=== PATIENT | male | born 1985 | race Caucasian/White ===

== ENCOUNTER 2016-08-15 17:29 | Emergency (ER) | payer OTHER ==
[2016-08-15 17:34] VITALS: BP 123/79; PULSE 82; TEMP 98; BMI 28.3
--- NOTE | 2016-08-15 17:51 | PDOC ---
History of Present Illness - General History Source: Patient Exam Limitations: No Limitations - History of Present Illness Initial Comments: 08/15/16 18:19 The patient is a 31 year old male presenting with his , with no significant past medical history, who presents to the emergency department with chest pain and dizziness onset today. He describes his chest pain as mild, without radiation or modifying factors. He also reports palpitations associated with his chief complaint. He states that for breakfast he usually drinks coffee and then skips lunch. For dinner he usually has a relatively big meal. He notes that he has been supplementing his lack of food intake with an energy powder he obtained at [facility]. He states that today he drank 2 scoop 8 ounce drinks every 2 hours of the powder. He states that he doesnt know whats in the powder other than caffeine. The patient denies shortness of breath and headache. Denies fever, chills, nausea, vomit, diarrhea and constipation. Allergies: None Past surgical history: None reported Social history: Alcohol, heroin and tobacco use (4 daily) <Gualberto Choi - Last Filed: 08/15/16 18:19> <Abe Wiley - Last Filed: 08/15/16 18:54> - General Chief Complaint: Chest Pain Stated Complaint: CHEST PAIN Time Seen by Provider: 08/15/16 17:43 Past History <Gualberto Choi - Last Filed: 08/15/16 18:19> - Past Medical History Anemia: No Asthma: No Cancer: No Cardiac Disorders: No CVA: No COPD: No CHF: No Dementia: No Diabetes: No GI Disorders: No Disorders: No HTN: No Hypercholesterolemia: No Kidney Stones: No Liver Disease: No Suicide Attempt (Hx): No Seizures: No Thyroid Disease: No Other medical history: DENIES - Surgical History Abdominal Surgery: No Appendectomy: No Cardiac Surgery: No Cholecystectomy: No Lung Surgery: No Neurologic Surgery: No Orthopedic Surgery: No - Reproductive History Testicular Surgery: No - Psycho/Social/Smoking Cessation Hx Anxiety: No Suicidal Ideation: No Smoking Status: Yes Smoking History: Current every day smoker Years of Tobacco Use: 5 Have you smoked in the past 12 months: Yes Number of Cigarettes Smoked Daily: 4 Cigars Per Day: 0 Information on smoking cessation initiated: Yes 'Breaking Loose' booklet given: 08/15/16 Hx Alcohol Use: Yes Drug/Substance Use Hx: Yes Substance Use Type: Heroin Hx Substance Use Treatment: Yes <Abe Wiley - Last Filed: 08/15/16 18:54> - Past Medical History Allergies/Adverse Reactions: Allergies Allergy/AdvReac Type Severity Reaction Status Date / Time No Known Allergies Allergy Verified 08/15/16 17:30 Home Medications: Ambulatory Orders NK [No Known Home Medication] 04/18/16 Review of Systems - Review of Systems Able to Perform ROS?: Yes Comments:: 08/15/16 18:19 GENERAL/CONSTITUTIONAL: No fever or chills. No weakness. HEAD, EYES, EARS, NOSE AND THROAT: No change in vision. No ear pain or discharge. No sore throat. CARDIOVASCULAR: +Chest pain, palpitations. No shortness of breath RESPIRATORY: No cough, wheezing, or hemoptysis. GASTROINTESTINAL: No nausea, vomiting, diarrhea or constipation. GENITOURINARY: No dysuria, frequency, or change in urination. MUSCULOSKELETAL: No joint or muscle swelling or pain. No neck or back pain. SKIN: No rash NEUROLOGIC: +Dizziness. No headache, loss of consciousness, or change in strength/sensation. ENDOCRINE: No increased thirst. No abnormal weight change HEMATOLOGIC/LYMPHATIC: No anemia, easy bleeding, or history of blood clots. ALLERGIC/IMMUNOLOGIC: No hives or skin allergy. <Gualberto Choi - Last Filed: 08/15/16 18:19> *Physical Exam - Vital Signs Last Vital Signs Temp Pulse Resp BP Pulse Ox 98 F 82 16 123/79 100 08/15/16 17:30 08/15/16 17:30 08/15/16 17:30 08/15/16 17:30 08/15/16 17:30 - Physical Exam Comments: 08/15/16 18:20 GENERAL: Awake, alert, and fully oriented, mildly anxious. HEAD: No signs of trauma, normocephalic, atraumatic EYES: PERRLA, EOMI, sclera anicteric, conjunctiva clear ENT: Auricles normal inspection, hearing grossly normal, nares patent, oropharynx clear without exudates. Moist mucosa NECK: Normal ROM, supple, no lymphadenopathy, JVD, or masses LUNGS: No distress, speaks full sentences, clear to auscultation bilaterally HEART: Regular rate and rhythm, normal S1 and S2, no murmurs, rubs or gallops, peripheral pulses normal and equal bilaterally. ABDOMEN: Soft, nontender, normoactive bowel sounds. No guarding, no rebound. No masses EXTREMITIES: Normal inspection, Normal range of motion, no edema. No clubbing or cyanosis. NEUROLOGICAL: Cranial nerves II through XII grossly intact. Normal speech, normal gait, no focal sensorimotor deficits SKIN: Warm, Dry, normal turgor, no rashes or lesions noted. <Gualberto Choi - Last Filed: 08/15/16 18:19> - Vital Signs Last Vital Signs Temp Pulse Resp BP Pulse Ox 98 F 82 16 123/79 100 08/15/16 17:30 08/15/16 17:30 08/15/16 17:30 08/15/16 17:30 08/15/16 17:30 <Abe Wiley - Last Filed: 08/15/16 18:54> ED Treatment Course - LABORATORY CBC & Chemistry Diagram: 08/15/16 17:45 08/15/16 17:45 - ADDITIONAL ORDERS Additional order review: Laboratory Results 08/15/16 17:45 Urine Color Yellow Urine Appearance Clear Urine pH 5.0 Ur Specific [place] 1.020 Urine Protein Negative Urine Glucose (UA) Negative Urine Ketones Negative Urine Blood Negative Urine Nitrite Negative Urine Bilirubin Negative Urine Urobilinogen 0.2 e.u/dl Ur Leukocyte Esterase Negative 08/15/16 17:45 RBC 5.60 MCV 86.9 MCHC 33.6 RDW 12.2 MPV 9.7 Neutrophils % 66.1 Lymphocytes % 23.8 D Monocytes % 6.2 Eosinophils % 0.9 Basophils % 3.0 H D <Gualberto Choi - Last Filed: 08/15/16 18:19> - LABORATORY CBC & Chemistry Diagram: 08/15/16 17:45 08/15/16 17:45 <Abe Wiley - Last Filed: 08/15/16 18:54> *DC/Admit/Observation/Transfer - Attestations Scribe Attestion: 08/15/16 18:20 Documentation prepared by Gualberto Choi, acting as faculty i on call medical assistant for Abe Wiley MD <Gualberto Choi - Last Filed: 08/15/16 18:19> - Discharge Dispostion Admit: No - Attestations Physician Attestion: 08/15/16 17:44 I, Dr. Abe Wiley, attest that this document has been prepared under my direction and personally reviewed by me in its entirety. I further attest, that it accurately reflects all work, treatment, procedures and medical decision -making performed by me. <Abe Wiley - Last Filed: 08/15/16 18:54> Diagnosis at time of Disposition: Discomfort in chest, Nervous irritability, Use of energy drinks - Discharge Dispostion Disposition: HOME Condition at time of disposition: Good - Patient Instructions Printed Discharge Instructions: DI for Atypical Chest Pain Additional Instructions: Andre - No more Pre-Workout supplements tonight or tomorrow and then only use them as they are designed to be used. Eat small frequent low fat meals during the day and a sensible dinner at night. Return to us if any problems. See your doctor on wednesday. Best- Dr. Abe Wiley - Post Discharge Activity Work/School Note: Back to Work
[2016-08-15 18:06] LABS: URINE APPEARANCE Clear; URINE BILIRUBIN Negative (NEGATIVE); URINE BLOOD Negative (NEGATIVE); URINE GLUCOSE (UA) Negative (NEGATIVE); URINE KETONE Negative (NEGATIVE); URINE LEUK ESTERASE Negative (NEGATIVE); URINE NITRITE Negative (NEGATIVE); URINE PROTEIN Negative (NEGATIVE); URINE UROBILINOGEN 0.2 E.U/dl (0.2-1.0)
[2016-08-15 18:08] LABS: URINE COLOR YELLOW
[2016-08-15 18:12] LABS: EOSINOPHIL 0.9 % (0-4.5); MCH 29.2 pg (25.7-33.7); MCHC 33.6 g/dl (32.0-35.9); MEAN CELL VOLUME 86.9 fl (80-96); MEAN PLT VOLUME 9.7 fl (7.5-11.1); NEUTROPHILS 66.1 % (42.8-82.8); PLATELET COUNT 237 K/MM3 (134-434); RDW 12.2 % (11.9-15.9); WHITE BLOOD COUNT 10.2 K/mm3 (4.0-10.8)
[2016-08-15 18:17] LABS: INR 1.12 (0.82-1.09); PROTHROMBIN TIME (PATIENT) 12.5 SEC (10.2-13.0)
[2016-08-15] MEDS ORDERED: LORazepam 1 MG TABLET PO ONE (18:21)
[2016-08-15] MEDS ORDERED: LORazepam 0.5 MG TABLET ONE (18:23)
[2016-08-15 18:33] LABS: CPK(DFH) 142 IU/L (38-174)
[2016-08-15 18:34] LABS: ALBUMIN 4.5 g/dl (3.5-5.0); ALK PHOS 53 U/L (32-92); ANION GAP 9 (8-16); BILIRUBIN,TOTAL 1.3 mg/dl (0.2-1.0); CALCIUM 9.2 mg/dl (8.4-10.2); CO2 28 mmol/L (22-28); COCKROFT - GAULT 145.1; CREATININE 0.9 mg/dl (0.6-1.3); GLUCOSE,RANDOM 102 mg/dl (74-106); SGOT/AST 23 U/L (10-42); SGPT/ALT 22 U/L (10-40); TOT PROT 7.3 g/dl (6.4-8.3)
[2016-08-15 18:43] LABS: TROPONIN I (DFP) < 0.03 ng/ml (0.03-0.50)
[2016-08-15 19:49] LABS: URINE MARIJUANA THC NEGATIVE ng/ml (CUTOFF=50)
--- NOTE | 2016-08-16 16:08 | EKG ---
Test Reason : Blood Pressure : / mmHG Vent. Rate : 072 BPM Atrial Rate : 072 BPM P-R Int : 148 ms QRS Dur : 100 ms QT Int : 390 ms P-R-T Axes : 046 -23 020 degrees QTc Int : 427 ms NORMAL SINUS RHYTHM WITH SINUS ARRHYTHMIA INCOMPLETE RIGHT BUNDLE BRANCH BLOCK BORDERLINE ECG NO PREVIOUS ECGS AVAILABLE Confirmed by ABNER PATTERSON MD ([id number]) on 08/16/2016 4:08:19 PM Referred By: THIERRY Confirmed By:ABNER PATTERSON MD
== END 2016-08-15 19:02 | disposition home or self-care (01) ==
LOC: FER 17:29
DX: R07.89 Other chest pain (principal); R45.4 Irritability and anger; F17.210 Nicotine dependence, cigarettes, uncomplicated
CPT/HCPCS: 36415; 71010-TC; 80053; 80307; 81003; 82550; 83880; 84484; 85025; 85610; 93005; 99283-25

== ENCOUNTER 2017-01-06 21:57 | Inpatient (IN) | payer OTHER ==
[2017-01-06 22:40] VITALS: BMI 28.8
--- NOTE | 2017-01-06 22:46 | HP ---
COWS - Scale Resting Pulse: 1= [place] 81-100 Sweatin=Flushed/Facial Moisture Restless Observation: 3= Extraneous Movement Pupil Size: 2= Moderately Dilated Bone or Joint Aches: 2= Severe Diffuse Aches Runny Nose/ Eye Tearin= Runny Nose/Eyes GI Upset > 30mins: 2= Nausea/Diarrhea Tremor Observation: 2= Slight Tremor Visible Yawning Observation: 2= >3x During Session Anxiety or Irritability: 2=Irritable/Anxious Goose Flesh Skin: 0=Smooth Skin COWS Score: 20 Admission ROS BHS - HPI Chief Complaint: i need help to stop using heroin Allergies/Adverse Reactions: Allergies Allergy/AdvReac Type Severity Reaction Status Date / Time No Known Allergies Allergy Verified 01/06/17 22:41 History of Present Illness: this 31 years old male with heroin dependence,seeking detox,last treatment in [place] 05/19 nicotine dependence longest period of sobriety 7 months depression Exam Limitations: No Limitations - Ebola screening Have you traveled outside of the country in the last 21 days: No Have you had contact with anyone from an Ebola affected area: No Do you have a fever: No - Review of Systems Constitutional: Chills, Diaphoresis, Loss of Appetite, Malaise, Night Sweats, Changes in sleep EENT: reports: Tearing, Nose Congestion Respiratory: reports: No Symptoms reported Cardiac: reports: Palpitations GI: reports: Nausea, Poor Appetite, Vomiting, Abdominal cramping : reports: No Symptoms Reported Musculoskeletal: reports: Back Pain, Joint Pain, Muscle Pain, Joint Stiffness Integumentary: reports: Dryness Neuro: reports: Headache, Tremors Endocrine: reports: No Symptoms Reported Hematology: reports: No Symptoms Reported Psychiatric: reports: Depressed Patient History - Patient Medical History Hx Anemia: No Hx Asthma: No Hx Chronic Obstructive Pulmonary Disease (COPD): No Hx Cancer: No Hx Cardiac Disorders: No Hx Congestive Heart Failure: No Hx Hypertension: No Hx Hypercholesterolemia: No Hx Pacemaker: No HX Cerebrovascular Accident: No Hx Seizures: No Hx Dementia: No Hx Diabetes: No Hx Gastrointestinal Disorders: No Hx Liver Disease: No Hx Genitourinary Disorders: No Hx Sexually Transmitted Disorders: No Hx Renal Disease (ESRD): No Hx Thyroid Disease: No Hx Human Immunodeficiency Virus (HIV): No (2016 negative) Hx Hepatitis C: No Hx Depression: Yes (no med) Hx Suicide Attempt: No Hx Bipolar Disorder: No Hx Schizophrenia: No Other Medical History: no suicidal,no homicidal - Patient Surgical History Past Surgical History: No Hx Neurologic Surgery: No Hx Cataract Extraction: No Hx Cardiac Surgery: No Hx Lung Surgery: No Hx Breast Surgery: No Hx Breast Biopsy: No Hx Abdominal Surgery: No Hx Appendectomy: No Hx Cholecystectomy: No Hx Genitourinary Surgery: No Hx Section: No Hx Orthopedic Surgery: No Anesthesia Reaction: No - PPD History Previous Implant?: Yes Documented Results: Negative w/o proof Implanted On Prior [facility] Admission?: Yes Date: 08/17/15 Results: 0MM PPD to be Administered?: Yes - Smoking Cessation Smoking history: Current every day smoker Have you smoked in the past 12 months: Yes Aproximately how many cigarettes per day: 4 Cigars Per Day: 0 Hx Chewing Tobacco Use: No Initiated information on smoking cessation: Yes 'Breaking Loose' booklet given: 01/06/17 - Substance & Tx. History Hx Alcohol Use: No Hx Substance Use: Yes Substance Use Type: Cocaine, Heroin Hx Substance Use Treatment: Yes ([facility] 05/19) - Substances Abused Heroin Route: Injection Frequency: Daily Amount used: 7 BAGS Age of first use: 29 Date of Last Use: 01/06/17 Family Disease History - Family Disease History Family Disease History: CA: Grandparent (MATERNAL), Other: Mother (LUPUS OA) Admission Physical Exam BHS - Vital Signs Vital Signs: Vital Signs - 24 hr 01/06/17 22:35 Temperature 98.2 F Pulse Rate 74 Respiratory 18 Rate Blood Pressure 157/88 - Physical General Appearance: Yes: Moderate Distress, Tremorous, Irritable, Sweating, Anxious HEENTM: Yes: Normal ENT Inspection, ANNA, Pharynx Normal Respiratory: Yes: Lungs Clear, Normal Breath Sounds, No Respiratory Distress Neck: Yes: Within Normal Limits, Supple, Trachea in good position Breast: Yes: Within Normal Limits Cardiology: Yes: Within Normal Limits, Regular Rhythm, Regular Rate, S1, S2 Abdominal: Yes: Within Normal Limits, Normal Bowel Sounds, Non Tender, Soft Genitourinary: Yes: Within Normal Limits Back: Yes: Muscle Spasm Musculoskeletal: Yes: full range of Motion, Back pain, Muscle Pain Extremities: Yes: Within Normal Limits, Normal Range of Motion, Tremors Neurological: Yes: aquatic facility manager II-XII NML intact, Fully Oriented, Alert, Motor Strength 5/5 Integumentary: Yes: Dry Lymphatic: Yes: Within Normal Limits - Diagnostic (1) Opioid dependence with withdrawal Current Visit: Yes Status: Chronic (2) Nicotine dependence Current Visit: Yes Status: Chronic Qualifiers: Nicotine product type: cigarettes Substance use status: uncomplicated Qualified Code(s): F17.210 - Nicotine dependence, cigarettes, uncomplicated (3) Low back pain Current Visit: Yes Status: Acute (4) Depressed Current Visit: No Status: Chronic Qualifiers: Depression Type: unspecified Qualified Code(s): F32.9 - Major depressive disorder, single episode, unspecified Cleared for Admission [facility] - Detox or Rehab [facility] Level of Care: Medically Managed Detox Regimen/Protocol: Methadone [facility] Breath Alcohol Content Breath Alcohol Content: 0 Urine Drug Screen - Results Drug Screen Negative: No Urine Drug Screen Results: ROSEMARIE-Cocaine, OPI-Opiates
[2017-01-06] MEDS ORDERED: MAGNESIUM CITRATE 300 ML BOTTLE PO PRN (22:59)
[2017-01-06] MEDS ORDERED: ACETAMINOPHEN 325 MG TABLET (FP) PO PRN (22:59)
[2017-01-06] MEDS ORDERED: METHADONE HCL 10 MG TABLET (FOR DETOX USE ONLY) PO ONE ×2 (22:59→23:00)
[2017-01-06] MEDS ORDERED: MENTHOL/PHENOL 1 EACH UD MM PRN (22:59)
[2017-01-06] MEDS ORDERED: IBUPROFEN 400 MG TABLET (FP) PO PRN (22:59)
[2017-01-06] MEDS ORDERED: diphenhydrAMINE HCL 50 MG CAPSULE PO PRN (22:59)
[2017-01-06] MEDS ORDERED: LOPERAMIDE HCL 2 MG CAPSULE PO PRN (22:59)
[2017-01-06] MEDS ORDERED: hydrOXYzine PAMOATE 25 MG CAPSULE (FP) PO PRN (22:59)
[2017-01-06] MEDS ORDERED: MAGNESIUM HYDROX 2400MG/30ML ORAL SUSPENSION 30 ML CUP PO PRN (22:59)
[2017-01-06] MEDS ORDERED: MAG HYDROX/AL HYDROX/SIMETH 30 ML UNIT-DOSE CUP PO PRN (22:59)
[2017-01-06] MEDS ORDERED: P-EPHED 60MG/TRIPROLIDI 2.5MG TABLET PO PRN (22:59)
[2017-01-06] MEDS ORDERED: guaiFENesin/D-METHORPHAN HB 10 ML UNIT-DOSE CUPS PO PRN (22:59)
[2017-01-06] MEDS: diazePAM 5 MG TABLET PO PRN (23:21)
[2017-01-06] MEDS: NICOTINE POLACRILEX 2 MG GUM BC PRN (23:42)
[2017-01-07] MEDS: diazePAM 5 MG TABLET PO PRN ×2 (04:13→22:24)
--- NOTE | 2017-01-07 08:58 | CONSULT ---
[facility] Psychiatric Consult - Data Date of interview: 01/07/17 Admission source: [facility] Identifying data: This is 31 years old female with no psychiatric hospitalization history intoxicated with: Cannabis, Heroin, Cocaine and Nicotine Substance Abuse History: Drug Screen Negative: No. Urine Drug Screen Results: ROSEMARIE-Cocaine, OPI-Opiates. - Smoking Cessation. Smoking history: Current every day smoker. Have you smoked in the past 12 months: Yes. Aproximately how many cigarettes per day: 4. Cigars Per Day: 0. Hx Chewing Tobacco Use: No. Initiated information on smoking cessation: Yes. 'Breaking Loose' booklet given : 01/06/17. - Substance & Tx. History. Hx Alcohol Use: No. Hx Substance Use: Yes. Substance Use Type: Cocaine, Heroin. Hx Substance Use Treatment: Yes ( [facility] 05/19) Medical History: DVT history, Abscess history, LBP, hisotry of sepsis Psychiatric History: Patient reports history of MDD, Panic disorder, reports no medication taking prior to admission,. denies suicidal history Physical/Sexual Abuse/Trauma History: Denies Additional Comment: Drug Screen Negative: No. Urine Drug Screen Results: ROSEMARIE- Cocaine, OPI-Opiates. Observation. Detox Unit Care Protocol Mental Status Exam - Mental Status Exam Alert and Oriented to: Person Cognitive Function: Fair Patient Appearance: Unkempt Mood: Anxious Affect: Mood Congruent Patient Behavior: Cooperative Speech Pattern: Appropriate Voice Loudness: Mildly Soft/Quiet Thought Process: Circumstantial Thought Disorder: Being Controlled Hallucinations: Denies Suicidal Ideation: Denies Homicidal Ideation: Denies Insight/Judgement: Fair Sleep: Difficulty falling asleep Appetite: Fair Muscle strength/Tone: Mild Hypotonicity Gait/Station: Shuffling Additional Comments: Observation. Detox Unit Care Protocol Psychiatric Findings - Problem List (Ray 1, 2,3) (1) Amphetamine abuse Current Visit: No Status: Acute (2) Cannabis dependence Current Visit: No Status: Acute (3) Heroin dependence Current Visit: No Status: Acute (4) MDD (major depressive disorder) Current Visit: No Status: Acute (5) Nicotine dependence Current Visit: No Status: Acute (6) Opioid dependence with withdrawal Current Visit: No Status: Acute (7) Sedative hypnotic or anxiolytic dependence Current Visit: No Status: Acute - Initial Treatment Plan Initial Treatment Plan: Observation. Detox Unit Care Protocol
[2017-01-07 09:52] LABS: MCH 28.7 pg (25.7-33.7); MCHC 33.5 g/dl (32.0-35.9); MEAN CELL VOLUME 85.6 fl (80-96); MEAN PLT VOLUME 9.5 fl (7.5-11.1); PLATELET COUNT 195 K/MM3 (134-434); RDW 12.4 % (11.9-15.9); WHITE BLOOD COUNT 5.7 K/mm3 (4.0-10.0)
[2017-01-07] MEDS ORDERED: METHADONE HCL 10 MG TABLET (FOR DETOX USE ONLY) PO ONE (10:00)
[2017-01-07 10:25] LABS: ALBUMIN 3.1 g/dl (3.4-5.0); ALK PHOS 55 U/L (45-117); ANION GAP 6 (8-16); BILIRUBIN,TOTAL 0.8 mg/dL (0.2-1.0); CALCIUM 8.4 mg/dL (8.5-10.1); CO2 32 mmol/L (21-32); GLUCOSE,RANDOM 81 mg/dL (74-106); SGOT/AST 13 U/L (15-37); SGPT/ALT 23 U/L (12-78); TOT PROT 5.9 g/dl (6.4-8.2)
[2017-01-07] MEDS: PRENATAL VITAMINS W/ FOLIC ACID TABLET (FP) PO SCH (10:33)
[2017-01-07] MEDS: cloNIDine HCL 0.1 MG TABLET PO SCH ×2 (10:33→22:24)
[2017-01-07] MEDS: CYCLOBENZAPRINE HCL 10 MG TABLET (FP) PO PRN ×2 (10:33→22:24)
[2017-01-07 10:48] LABS: HIV 1 & 2 AB NEGATIVE; HIV 1 AGp24 NEGATIVE
--- NOTE | 2017-01-07 12:31 | EKG ---
Test Reason : Blood Pressure : / mmHG Vent. Rate : 065 BPM Atrial Rate : 065 BPM P-R Int : 152 ms QRS Dur : 112 ms QT Int : 404 ms P-R-T Axes : 000 203 171 degrees QTc Int : 420 ms NORMAL SINUS RHYTHM RIGHT SUPERIOR AXIS DEVIATION ABNORMAL ECG WHEN COMPARED WITH ECG OF 15-AUG-2016 17:48, INCOMPLETE RIGHT BUNDLE BRANCH BLOCK IS NO LONGER PRESENT NON-SPECIFIC CHANGE IN ST SEGMENT IN LATERAL LEADS Confirmed by MAMIE ATKINS, DISHA ([id number]) on 01/07/2017 12:31:13 PM Referred By: Confirmed By:DISHA HATCH MD
--- NOTE | 2017-01-07 12:31 | PN ---
BHS COWS - Scale Resting Pulse: 0= [place] 80 or Below Sweatin=Flushed/Facial Moisture Restless Observation: 1= Difficult to Sit Still Pupil Size: 0= Normal to Room Light Bone or Joint Aches: 2= Severe Diffuse Aches Runny Nose/ Eye Tearin= Nasal Congestion GI Upset > 30mins: 1= Stomach Cramp Tremor Observation of Outstretched Hands: 2= Slight Tremor Visible Yawning Observation: 2= >3x During Session Anxiety or Irritability: 2=Irritable/Anxious Goose Flesh Skin: 3=Piloerection COWS Score: 16 BHS Progress Note (SOAP) Subjective: irritable agitation sweats shakes interrupted sleep Objective: 01/07/17 12:29 Vital Signs Temperature 97.7 F 01/07/17 10:00 Pulse Rate 67 01/07/17 10:00 Respiratory Rate 18 01/07/17 10:00 Blood Pressure 118/63 01/07/17 10:00 O2 Sat by Pulse Oximetry (%) Laboratory Tests 01/07/17 01/07/17 01/07/17 07:00 07:00 07:00 WBC 5.7 RBC 5.07 Hgb 14.6 Hct 43.5 MCV 85.6 MCH 28.7 MCHC 33.5 RDW 12.4 Plt Count 195 MPV 9.5 Sodium 141 Potassium 3.7 Chloride 103 Carbon Dioxide 32 Anion Gap 6 L BUN 16 D Creatinine 1.0 D Creat Clearance w eGFR > 60 Random Glucose 81 Calcium 8.4 L Total Bilirubin 0.8 D AST 13 L D ALT 23 D Alkaline Phosphatase 55 Total Protein 5.9 L Albumin 3.1 L RPR Titer HIV 1&2 Antibody Screen Negative HIV P24 Antigen Negative 01/07/17 07:00 WBC RBC Hgb Hct MCV MCH MCHC RDW Plt Count MPV Sodium Potassium Chloride Carbon Dioxide Anion Gap BUN Creatinine Creat Clearance w eGFR Random Glucose Calcium Total Bilirubin AST ALT Alkaline Phosphatase Total Protein Albumin RPR Titer Nonreactive HIV 1&2 Antibody Screen HIV P24 Antigen awake/alert ambulating no acute distress Assessment: 01/07/17 12:30 withdrawal sx Plan: continue detox increase fluids
[2017-01-07 13:46] LABS: URINE APPEARANCE CLEAR; URINE BILIRUBIN NEGATIVE (NEGATIVE); URINE BLOOD NEGATIVE (NEGATIVE); URINE COLOR YELLOW; URINE GLUCOSE (UA) NEGATIVE (NEGATIVE); URINE KETONE NEGATIVE (NEGATIVE); URINE LEUK ESTERASE NEGATIVE (NEGATIVE); URINE NITRITE NEGATIVE (NEGATIVE); URINE PROTEIN NEGATIVE (NEGATIVE); URINE UROBILINOGEN 4.0 E.U/dl mg/dL (0.2-1.0)
[2017-01-07] MEDS: THIAMINE HCL 100 MG TABLET (FP) PO SCH (22:24)
--- NOTE | 2017-01-08 09:56 | PN ---
BHS COWS - Scale Resting Pulse: 0= [place] 80 or Below Sweatin= Chills/Flushing Restless Observation: 3= Extraneous Movement Pupil Size: 1= Pupils >than Normal Bone or Joint Aches: 2= Severe Diffuse Aches Runny Nose/ Eye Tearin= Runny Nose/Eyes GI Upset > 30mins: 2= Nausea/Diarrhea Tremor Observation of Outstretched Hands: 2= Slight Tremor Visible Yawning Observation: 1= 1-2x During Session Anxiety or Irritability: 2=Irritable/Anxious Goose Flesh Skin: 0=Smooth Skin COWS Score: 16 BHS Progress Note (SOAP) Subjective: ALERT,IRRITABLE,ANXIOUS,INTERRUPTED SLEEP,TREMOR,PAIN IN THE BODY Objective: 01/08/17 09:55 Vital Signs Temperature 98.1 F 01/08/17 09:55 Pulse Rate 68 01/08/17 09:55 Respiratory Rate 18 01/08/17 09:55 Blood Pressure 136/62 01/08/17 09:55 O2 Sat by Pulse Oximetry (%) Assessment: 01/08/17 09:55 WITHDRAWAL SYMPTOM Plan: CONTINUE DETOX
[2017-01-08] MEDS ORDERED: METHADONE HCL 5 MG TABLET (FOR DETOX USE ONLY) PO ONE (10:00)
[2017-01-08] MEDS: PRENATAL VITAMINS W/ FOLIC ACID TABLET (FP) PO SCH (10:22)
[2017-01-08] MEDS: cloNIDine HCL 0.1 MG TABLET PO SCH ×2 (10:22→22:16)
[2017-01-08] MEDS: diazePAM 5 MG TABLET PO PRN ×2 (10:24→22:16)
--- NOTE | 2017-01-08 11:20 | PN ---
BHS Progress Note Note: LESS WITHDRAWAL SYMPTOM,MEDICATION ADJUSTED
[2017-01-08] MEDS: THIAMINE HCL 100 MG TABLET (FP) PO SCH (22:15)
[2017-01-08] MEDS: CYCLOBENZAPRINE HCL 10 MG TABLET (FP) PO PRN (22:15)
[2017-01-09] MEDS ORDERED: METHADONE HCL 10 MG TABLET (FOR DETOX USE ONLY) PO ONE (10:00)
[2017-01-09] MEDS ORDERED: METHADONE HCL 5 MG TABLET (FOR DETOX USE ONLY) PO ONE (10:00)
[2017-01-09] MEDS: cloNIDine HCL 0.1 MG TABLET PO SCH ×2 (10:28→22:10)
[2017-01-09] MEDS: PRENATAL VITAMINS W/ FOLIC ACID TABLET (FP) PO SCH (10:28)
--- NOTE | 2017-01-09 11:06 | PN ---
BHS Progress Note (SOAP) Subjective: mild shakes and sweats Objective: 01/09/17 11:04 Vital Signs - 8 hr 01/09/17 01/09/17 01/09/17 03:30 06:31 10:00 Temperature 97.1 F L 98.1 F Pulse Rate 54 L 72 Respiratory 18 16 18 Rate Blood Pressure 114/62 123/78 Laboratory Last Values WBC 5.7 K/mm3 (4.0-10.0) 01/07/17 07:00 RBC 5.07 M/mm3 (4.00-5.60) 01/07/17 07:00 Hgb 14.6 GM/dL (11.7-16.9) 01/07/17 07:00 Hct 43.5 % (35.4-49) 01/07/17 07:00 MCV 85.6 fl (80-96) 01/07/17 07:00 MCH 28.7 pg (25.7-33.7) 01/07/17 07:00 MCHC 33.5 g/dl (32.0-35.9) 01/07/17 07:00 RDW 12.4 % (11.9-15.9) 01/07/17 07:00 Plt Count 195 K/MM3 (134-434) 01/07/17 07:00 MPV 9.5 fl (7.5-11.1) 01/07/17 07:00 Sodium 141 mmol/L (136-145) 01/07/17 07:00 Potassium 3.7 mmol/L (3.5-5.1) 01/07/17 07:00 Chloride 103 mmol/L (98-107) 01/07/17 07:00 Carbon Dioxide 32 mmol/L (21-32) 01/07/17 07:00 Anion Gap 6 (8-16) L 01/07/17 07:00 BUN 16 mg/dL (7-18) D 01/07/17 07:00 Creatinine 1.0 mg/dL (0.7-1.3) D 01/07/17 07:00 Creat Clearance w eGFR > 60 (>60) 01/07/17 07:00 Random Glucose 81 mg/dL (74-106) 01/07/17 07:00 Calcium 8.4 mg/dL (8.5-10.1) L 01/07/17 07:00 Total Bilirubin 0.8 mg/dL (0.2-1.0) D 01/07/17 07:00 AST 13 U/L (15-37) L D 01/07/17 07:00 ALT 23 U/L (12-78) D 01/07/17 07:00 Alkaline Phosphatase 55 U/L (45-117) 01/07/17 07:00 Total Protein 5.9 g/dl (6.4-8.2) L 01/07/17 07:00 Albumin 3.1 g/dl (3.4-5.0) L 01/07/17 07:00 Urine Color Yellow 01/07/17 10:05 Urine Appearance Clear 01/07/17 10:05 Urine pH 6.0 (5.0-8.0) 01/07/17 10:05 Ur Specific [place] 1.025 (1.005-1.025) 01/07/17 10:05 Urine Protein Negative (NEGATIVE) 01/07/17 10:05 Urine Glucose (UA) Negative (NEGATIVE) 01/07/17 10:05 Urine Ketones Negative (NEGATIVE) 01/07/17 10:05 Urine Blood Negative (NEGATIVE) 01/07/17 10:05 Urine Nitrite Negative (NEGATIVE) 01/07/17 10:05 Urine Bilirubin Negative (NEGATIVE) 01/07/17 10:05 Urine Urobilinogen 4.0 e.u/dl mg/dL (0.2-1.0) 01/07/17 10:05 Ur Leukocyte Esterase Negative (NEGATIVE) 01/07/17 10:05 RPR Titer Nonreactive (NONREACTIVE) 01/07/17 07:00 HIV 1&2 Antibody Screen Negative 01/07/17 07:00 HIV P24 Antigen Negative 01/07/17 07:00 labs noted Assessment: 01/09/17 11:05 resolving withdrawal sx Plan: continue detox
[2017-01-09] MEDS: CYCLOBENZAPRINE HCL 10 MG TABLET (FP) PO PRN (22:11)
[2017-01-09] MEDS: diazePAM 5 MG TABLET PO PRN (22:11)
[2017-01-09] MEDS: THIAMINE HCL 100 MG TABLET (FP) PO SCH (22:11)
[2017-01-09] MEDS: NICOTINE POLACRILEX 2 MG GUM BC PRN (22:13)
[2017-01-10] MEDS ORDERED: METHADONE HCL 5 MG TABLET (FOR DETOX USE ONLY) PO ONE (06:00)
[2017-01-10] MEDS ORDERED: METHADONE HCL 10 MG TABLET (FOR DETOX USE ONLY) PO ONE (10:00)
[2017-01-10 10:43] VITALS: BP 129/72; PULSE 67; TEMP 97.7
[2017-01-11] MEDS ORDERED: METHADONE HCL 5 MG TABLET (FOR DETOX USE ONLY) PO ONE (06:00)
== END 2017-01-10 09:46 | disposition home or self-care (01) | DRG 897 ==
LOC: YASAS 21:57 → Y6N 22:33
PROVIDERS: ADMIT Internal Medicine Addiction Medicine; ATTEND Internal Medicine Addiction Medicine
PROC: HZ2ZZZZ Detoxification Services for Substance Abuse Treatment (ICD-10-PCS; principal; 2017-01-06)
DX: F11.23 Opioid dependence with withdrawal (principal); F33.9 Major depressive disorder, recurrent, unspecified; F17.210 Nicotine dependence, cigarettes, uncomplicated; M54.5 Low back pain; Z86.718 Personal history of other venous thrombosis and embolism
CPT/HCPCS: 36415; 80053; 81003; 85027; 86593; 87389; 93005; 93010

== ENCOUNTER 2017-02-17 22:01 | Inpatient (IN) | payer OTHER ==
[2017-02-17 22:04] VITALS: BMI 28.9
--- NOTE | 2017-02-17 22:08 | HP ---
COWS - Scale Resting Pulse: 0= [place] 80 or Below Sweatin= Chills/Flushing Restless Observation: 1= Difficult to Sit Still Pupil Size: 0= Normal to Room Light Bone or Joint Aches: 2= Severe Diffuse Aches Runny Nose/ Eye Tearin= Runny Nose/Eyes GI Upset > 30mins: 2= Nausea/Diarrhea Tremor Observation: 2= Slight Tremor Visible Yawning Observation: 1= 1-2x During Session Anxiety or Irritability: 2=Irritable/Anxious Goose Flesh Skin: 0=Smooth Skin COWS Score: 13 Admission [facility] Chief Complaint: withdrawal sx Allergies/Adverse Reactions: Allergies Allergy/AdvReac Type Severity Reaction Status Date / Time No Known Allergies Allergy Verified 01/06/17 22:41 History of Present Illness: 32 years old male with long history of heroin nicotine dependence denies medical issue has depression - "relationship issues" is admitted to detox Exam Limitations: No Limitations - Ebola screening Have you traveled outside of the country in the last 21 days: No Have you had contact with anyone from an Ebola affected area: No Have you been sick,other than usual withdrawal symptoms: No Do you have a fever: No - Review of Systems Constitutional: Changes in sleep, Weight Stable EENT: reports: No Symptoms Reported Respiratory: reports: No Symptoms reported Cardiac: reports: No Symptoms Reported GI: reports: Nausea, Poor Fluid Intake, Abdominal cramping : reports: No Symptoms Reported Musculoskeletal: reports: Back Pain, Joint Pain, Muscle Pain, Neck Pain Integumentary: reports: Change in Color (both inner elbows iv heroin) Neuro: reports: Tremors Endocrine: reports: No Symptoms Reported Hematology: reports: No Symptoms Reported Psychiatric: reports: Judgement Intact, Mood/Affect Appropiate, Orientated x3, Depressed Other Systems: Reviewed and Negative Patient History - Patient Medical History Hx Anemia: No Hx Asthma: No Hx Chronic Obstructive Pulmonary Disease (COPD): No Hx Cancer: No Hx Cardiac Disorders: No Hx Congestive Heart Failure: No Hx Hypertension: No Hx Hypercholesterolemia: No Hx Pacemaker: No HX Cerebrovascular Accident: No Hx Seizures: No Hx Dementia: No Hx Diabetes: No Hx Gastrointestinal Disorders: No Hx Liver Disease: No Hx Genitourinary Disorders: No Hx Sexually Transmitted Disorders: No Hx Renal Disease (ESRD): No Hx Thyroid Disease: No Hx Human Immunodeficiency Virus (HIV): No (2016 negative) Hx Hepatitis C: No Hx Depression: Yes (no med) Hx Suicide Attempt: No Hx Bipolar Disorder: No Hx Schizophrenia: No - Patient Surgical History Past Surgical History: No Hx Neurologic Surgery: No Hx Cataract Extraction: No Hx Cardiac Surgery: No Hx Lung Surgery: No Hx Breast Surgery: No Hx Breast Biopsy: No Hx Abdominal Surgery: No Hx Appendectomy: No Hx Cholecystectomy: No Hx Genitourinary Surgery: No Hx Orthopedic Surgery: No - PPD History Previous Implant?: Yes Documented Results: Negative w/proof Implanted On Prior [facility] Admission?: Yes Date: 01/08/17 Results: 0MM PPD to be Administered?: No - Smoking Cessation Smoking history: Current every day smoker Have you smoked in the past 12 months: Yes Aproximately how many cigarettes per day: 4 Cigars Per Day: 0 Hx Chewing Tobacco Use: No Initiated information on smoking cessation: Yes 'Breaking Loose' booklet given: 02/17/17 - Substance & Tx. History Hx Alcohol Use: No Hx Substance Use: Yes Substance Use Type: Opiates Hx Substance Use Treatment: Yes (01/2018 [facility]) - Substances Abused Heroin Route: Injection Frequency: Daily Amount used: 4 bags Age of first use: 29 Date of Last Use: 02/17/17 Family Disease History - Family Disease History Family Disease History: [place]: Grandparent (MATERNAL), Other: Mother (LUPUS OA) Admission Physical Exam BHS - Physical General Appearance: Yes: Appropriately Dressed, Mild Distress, Tremorous, Irritable, Sweating, Anxious HEENTM: Yes: Hearing grossly Normal, Normal ENT Inspection, Normocephalic, Normal Voice Respiratory: Yes: Chest Non-Tender, Lungs Clear, Normal Breath Sounds, No Respiratory Distress, No Accessory Muscle Use Neck: Yes: Supple, Trachea in good position Breast: Yes: Breasts Symetrical Cardiology: Yes: Regular Rhythm, Regular Rate, S1, S2 Abdominal: Yes: Non Tender, Soft, Increased Bowel Sounds Genitourinary: Yes: Within Normal Limits Back: Yes: Normal Inspection Musculoskeletal: Yes: full range of Motion, Gait Steady, Back pain, Muscle Pain Extremities: Yes: Normal Range of Motion, Non-Tender, Tremors Neurological: Yes: Fully Oriented, Alert, Motor Strength 5/5, Normal Response, Depressed Affect Integumentary: Yes: Warm, Track [place] Lymphatic: Yes: Within Normal Limits - Diagnostic (1) Low back pain Current Visit: Yes Status: Chronic Qualifiers: Chronicity: chronic Back pain laterality: midline Sciatica presence : without sciatica Qualified Code(s): M54.5 - Low back pain; M54.5 - Low back pain; G89.29 - Other chronic pain; G89.29 - Other chronic pain (2) Depressed Current Visit: Yes Status: Suspected Qualifiers: Depression Type: dysthymia Qualified Code(s): F34.1 - Dysthymic disorder; F34.1 - Dysthymic disorder; F34.1 - Dysthymic disorder (3) Nicotine dependence Current Visit: Yes Status: Acute Qualifiers: Nicotine product type: cigarettes Substance use status: in withdrawal Qualified Code(s): F17.213 - Nicotine dependence, cigarettes, with withdrawal; F17.213 - Nicotine dependence, cigarettes, with withdrawal (4) Opioid dependence with withdrawal Current Visit: Yes Status: Acute Cleared for Admission [facility] - Detox or Rehab [facility] Level of Care: Medically Managed Detox Regimen/Protocol: Methadone [facility] Breath Alcohol Content Breath Alcohol Content: 0
[2017-02-17] MEDS ORDERED: P-EPHED 60MG/TRIPROLIDI 2.5MG TABLET PO PRN (22:14)
[2017-02-17] MEDS ORDERED: ACETAMINOPHEN 325 MG TABLET (FP) PO PRN (22:14)
[2017-02-17] MEDS ORDERED: MAGNESIUM HYDROX 2400MG/30ML ORAL SUSPENSION 30 ML CUP PO PRN (22:14)
[2017-02-17] MEDS ORDERED: guaiFENesin/D-METHORPHAN HB 10 ML UNIT-DOSE CUPS PO PRN (22:14)
[2017-02-17] MEDS ORDERED: METHADONE HCL 10 MG TABLET (FOR DETOX USE ONLY) PO ONE ×2 (22:14→23:00)
[2017-02-17] MEDS ORDERED: MAG HYDROX/AL HYDROX/SIMETH 30 ML UNIT-DOSE CUP PO PRN (22:14)
[2017-02-17] MEDS ORDERED: IBUPROFEN 400 MG TABLET (FP) PO PRN (22:14)
[2017-02-17] MEDS ORDERED: NICOTINE 14 MG/24 HOURS TOPICAL PATCH TD PRN (22:14)
[2017-02-17] MEDS ORDERED: LOPERAMIDE HCL 2 MG CAPSULE PO PRN (22:14)
[2017-02-17] MEDS ORDERED: MAGNESIUM CITRATE 300 ML BOTTLE PO PRN (22:14)
[2017-02-17] MEDS ORDERED: MENTHOL/PHENOL 1 EACH UD MM PRN (22:14)
[2017-02-17] MEDS: BACLOFEN 10 MG TABLET (FP) PO PRN (23:24)
[2017-02-17] MEDS: diazePAM 5 MG TABLET PO PRN (23:25)
--- NOTE | 2017-02-18 08:47 | CONSULT ---
[facility] Psychiatric Consult - Data Date of interview: 02/18/17 Admission source: [facility] Identifying data: This is 32 years old male with no psychiatric hospitalization history intoxicated with: Methadone, Nicotine, Amphetamines, Cannabis, Heroin Substance Abuse History: - Smoking Cessation. Smoking history: Current every day smoker. Have you smoked in the past 12 months: Yes. Aproximately how many cigarettes per day: 4. Cigars Per Day: 0. Hx Chewing Tobacco Use: No. Initiated information on smoking cessation: Yes. 'Breaking Loose' booklet given : 02/17/17. - Substance & Tx. History. Hx Alcohol Use: No. Hx Substance Use: Yes. Substance Use Type: Opiates. Hx Substance Use Treatment: Yes (01/2018 [facility]). - Substances Abused. Heroin. Route: Injection. Frequency: Daily. Amount used: 4 bags. Age of first use: 29. Date of Last Use: 02/17/17 Medical History: DVT History, Sepsis history, Cellul;itis history, LBP history, Psychiatric History: As per computer patient has a history of MDD, Panic disorder, reports no medications taking prior to admission, denies suicidal history Physical/Sexual Abuse/Trauma History: Denies Additional Comment: Observation. Detox Unit Care Protocol Mental Status Exam - Mental Status Exam Alert and Oriented to: Person Cognitive Function: Fair Patient Appearance: Unkempt Mood: Sad Affect: Flat Patient Behavior: Sedated Speech Pattern: Delayed Voice Loudness: Mildly Soft/Quiet Thought Process: Circumstantial Thought Disorder: Being Controlled Hallucinations: Denies Suicidal Ideation: Denies Homicidal Ideation: Denies Insight/Judgement: Fair Sleep: Difficulty falling asleep Appetite: Fair Muscle strength/Tone: Mild Hypotonicity Gait/Station: Shuffling Additional Comments: Observation. Detox Unit Care Protocol Psychiatric Findings - Problem List ([place] 1, 2,3) (1) Nicotine dependence Current Visit: Yes Status: Acute Qualifiers: Nicotine product type: cigarettes Substance use status: in withdrawal Qualified Code(s): F17.213 - Nicotine dependence, cigarettes, with withdrawal; F17.213 - Nicotine dependence, cigarettes, with withdrawal (2) Opioid dependence with withdrawal Current Visit: Yes Status: Acute (3) Depressed Current Visit: Yes Status: Suspected Qualifiers: Depression Type: dysthymia Qualified Code(s): F34.1 - Dysthymic disorder; F34.1 - Dysthymic disorder; F34.1 - Dysthymic disorder (4) Amphetamine abuse Current Visit: No Status: Acute (5) Heroin dependence Current Visit: No Status: Acute (6) MDD (major depressive disorder) Current Visit: No Status: Acute (7) Panic attack Current Visit: No Status: Acute (8) Sedative hypnotic or anxiolytic dependence Current Visit: No Status: Acute (9) Cannabis dependence Current Visit: No Status: Chronic (10) Drug-induced mood disorder Current Visit: Yes Status: Acute - Initial Treatment Plan Initial Treatment Plan: Observation. Detox Unit Care Protocol
[2017-02-18] MEDS ORDERED: METHADONE HCL 10 MG TABLET (FOR DETOX USE ONLY) PO ONE (10:00)
[2017-02-18] MEDS: diazePAM 5 MG TABLET PO PRN ×2 (10:21→22:32)
[2017-02-18] MEDS: PRENATAL VITAMINS W/ FOLIC ACID TABLET (FP) PO SCH (10:21)
--- NOTE | 2017-02-18 10:30 | PN ---
BHS COWS - Scale Resting Pulse: 1= [place] 81-100 Sweatin= Chills/Flushing Restless Observation: 3= Extraneous Movement Pupil Size: 0= Normal to Room Light Bone or Joint Aches: 4=Acute Joint/Muscle Pain Runny Nose/ Eye Tearin= None GI Upset > 30mins: 0= None Tremor Observation of Outstretched Hands: 2= Slight Tremor Visible Yawning Observation: 1= 1-2x During Session Anxiety or Irritability: 2=Irritable/Anxious Goose Flesh Skin: 0=Smooth Skin COWS Score: 14 BHS Progress Note (SOAP) Subjective: ANXIETY,SWEATS/CHILLS. MEDS EFFECTIVE. Objective: 02/18/17 10:30 Vital Signs Temperature 97.5 F L 02/18/17 09:18 Pulse Rate 84 02/18/17 09:18 Respiratory Rate 18 02/18/17 09:18 Blood Pressure 131/82 02/18/17 09:18 O2 Sat by Pulse Oximetry (%) LABS PENDING Assessment: 02/18/17 10:30 WITHDRAWAL SX Plan: CONTINUE DETOX
[2017-02-18 10:49] LABS: MCHC 33.2 g/dl (32.0-35.9); MEAN CELL VOLUME 84.4 fl (80-96); PLATELET COUNT 217 K/MM3 (134-434); RDW 12.9 % (11.9-15.9); WHITE BLOOD COUNT 6.9 K/mm3 (4.0-10.0)
[2017-02-18 11:01] LABS: ALBUMIN 3.4 g/dl (3.4-5.0); ALK PHOS 55 U/L (45-117); ANION GAP 6 (8-16); BILIRUBIN,TOTAL 0.3 mg/dL (0.2-1.0); CALCIUM 8.7 mg/dL (8.5-10.1); CO2 28 mmol/L (21-32); CREATININE 0.9 mg/dL (0.7-1.3); GLUCOSE,RANDOM 81 mg/dL (74-106); SGOT/AST 11 U/L (15-37); SGPT/ALT 34 U/L (12-78); TOT PROT 6.4 g/dl (6.4-8.2)
[2017-02-18] MEDS: BACLOFEN 10 MG TABLET (FP) PO PRN ×2 (11:36→22:35)
[2017-02-18 11:50] LABS: HIV 1 & 2 AB NEGATIVE; HIV 1 AGp24 NEGATIVE
[2017-02-18] MEDS: NICOTINE POLACRILEX 2 MG GUM BC PRN (12:21)
--- NOTE | 2017-02-18 13:06 | EKG ---
Test Reason : Blood Pressure : / mmHG Vent. Rate : 062 BPM Atrial Rate : 062 BPM P-R Int : 150 ms QRS Dur : 120 ms QT Int : 408 ms P-R-T Axes : 047 -05 020 degrees QTc Int : 414 ms NORMAL SINUS RHYTHM NON-SPECIFIC INTRA-VENTRICULAR CONDUCTION DELAY BORDERLINE ECG WHEN COMPARED WITH ECG OF 06-JAN-2017 22:15, QRS AXIS SHIFTED RIGHT ST ELEVATION NOW PRESENT IN ANTERIOR LEADS Confirmed by MAMIE ATKINS, DISHA ([id number]) on 02/18/2017 1:06:20 PM Referred By: Confirmed By:DISHA HATCH MD
[2017-02-18] MEDS: diphenhydrAMINE HCL 50 MG CAPSULE PO PRN (22:32)
[2017-02-18] MEDS: THIAMINE HCL 100 MG TABLET (FP) PO SCH (22:32)
[2017-02-18 23:21] LABS: URINE APPEARANCE CLEAR; URINE BILIRUBIN NEGATIVE (NEGATIVE); URINE BLOOD NEGATIVE (NEGATIVE); URINE COLOR LTYELLOW; URINE GLUCOSE (UA) NEGATIVE (NEGATIVE); URINE KETONE NEGATIVE (NEGATIVE); URINE NITRITE NEGATIVE (NEGATIVE); URINE PROTEIN NEGATIVE (NEGATIVE); URINE UROBILINOGEN NEGATIVE mg/dL (0.2-1.0)
[2017-02-19] MEDS ORDERED: METHADONE HCL 5 MG TABLET (FOR DETOX USE ONLY) PO ONE (10:00)
[2017-02-19] MEDS: PRENATAL VITAMINS W/ FOLIC ACID TABLET (FP) PO SCH (10:08)
[2017-02-19] MEDS: diazePAM 5 MG TABLET PO PRN ×3 (10:10→22:18)
[2017-02-19] MEDS: BACLOFEN 10 MG TABLET (FP) PO PRN (10:10)
[2017-02-19] MEDS: NICOTINE POLACRILEX 2 MG GUM BC PRN (10:12)
[2017-02-19 10:14] LABS: URINE LEUK ESTERASE Negative (NEGATIVE)
--- NOTE | 2017-02-19 11:37 | PN ---
BHS COWS - Scale Resting Pulse: 0= [place] 80 or Below Sweatin= Chills/Flushing Restless Observation: 3= Extraneous Movement Pupil Size: 2= Moderately Dilated Bone or Joint Aches: 4=Acute Joint/Muscle Pain Runny Nose/ Eye Tearin= Nasal Congestion GI Upset > 30mins: 1= Stomach Cramp Tremor Observation of Outstretched Hands: 1= Tremor [place], Not Seen Yawning Observation: 2= >3x During Session Anxiety or Irritability: 2=Irritable/Anxious Goose Flesh Skin: 0=Smooth Skin COWS Score: 17 BHS Progress Note (SOAP) Subjective: ANXIETY,SWEATS, IRRITABILITY, INTERMITTENT SLEEP. Objective: 02/19/17 11:37 Vital Signs Temperature 97.7 F 02/19/17 11:34 Pulse Rate 77 02/19/17 11:34 Respiratory Rate 18 02/19/17 11:34 Blood Pressure 134/73 02/19/17 11:34 O2 Sat by Pulse Oximetry (%) Laboratory Last Values WBC 6.9 K/mm3 (4.0-10.0) 02/18/17 08:15 RBC 5.18 M/mm3 (4.00-5.60) 02/18/17 08:15 Hgb 14.5 GM/dL (11.7-16.9) 02/18/17 08:15 Hct 43.7 % (35.4-49) 02/18/17 08:15 MCV 84.4 fl (80-96) 02/18/17 08:15 MCH 28.0 pg (25.7-33.7) 02/18/17 08:15 MCHC 33.2 g/dl (32.0-35.9) 02/18/17 08:15 RDW 12.9 % (11.9-15.9) 02/18/17 08:15 Plt Count 217 K/MM3 (134-434) 02/18/17 08:15 MPV 9.0 fl (7.5-11.1) 02/18/17 08:15 Sodium 140 mmol/L (136-145) 02/18/17 07:20 Potassium 4.0 mmol/L (3.5-5.1) 02/18/17 07:20 Chloride 106 mmol/L (98-107) 02/18/17 07:20 Carbon Dioxide 28 mmol/L (21-32) 02/18/17 07:20 Anion Gap 6 (8-16) L 02/18/17 07:20 BUN 15 mg/dL (7-18) 02/18/17 07:20 Creatinine 0.9 mg/dL (0.7-1.3) 02/18/17 07:20 Creat Clearance w eGFR > 60 (>60) 02/18/17 07:20 Random Glucose 81 mg/dL (74-106) 02/18/17 07:20 Calcium 8.7 mg/dL (8.5-10.1) 02/18/17 07:20 Total Bilirubin 0.3 mg/dL (0.2-1.0) D 02/18/17 07:20 AST 11 U/L (15-37) L 02/18/17 07:20 ALT 34 U/L (12-78) D 02/18/17 07:20 Alkaline Phosphatase 55 U/L (45-117) 02/18/17 07:20 Total Protein 6.4 g/dl (6.4-8.2) 02/18/17 07:20 Albumin 3.4 g/dl (3.4-5.0) 02/18/17 07:20 Urine Color Ltyellow 02/18/17 23:00 Urine Appearance Clear 02/18/17 23:00 Urine pH 7.0 (5.0-8.0) 02/18/17 23:00 Ur Specific [place] 1.015 (1.005-1.025) 02/18/17 23:00 Urine Protein Negative (NEGATIVE) 02/18/17 23:00 Urine Glucose (UA) Negative (NEGATIVE) 02/18/17 23:00 Urine Ketones Negative (NEGATIVE) 02/18/17 23:00 Urine Blood Negative (NEGATIVE) 02/18/17 23:00 Urine Nitrite Negative (NEGATIVE) 02/18/17 23:00 Urine Bilirubin Negative (NEGATIVE) 02/18/17 23:00 Urine Urobilinogen Negative mg/dL (0.2-1.0) 02/18/17 23:00 Ur Leukocyte Esterase Negative (NEGATIVE) 02/18/17 23:00 RPR Titer Nonreactive (NONREACTIVE) 02/18/17 07:20 HIV 1&2 Antibody Screen Negative 02/18/17 07:20 HIV P24 Antigen Negative 02/18/17 07:20 Assessment: 02/19/17 11:37 WITHDRAWAL SX Plan: CONTINUE DETOX
[2017-02-19] MEDS: THIAMINE HCL 100 MG TABLET (FP) PO SCH (22:18)
[2017-02-19] MEDS: diphenhydrAMINE HCL 50 MG CAPSULE PO PRN (22:19)
[2017-02-20] MEDS ORDERED: METHADONE HCL 5 MG TABLET (FOR DETOX USE ONLY) PO ONE (10:00)
[2017-02-20] MEDS: PRENATAL VITAMINS W/ FOLIC ACID TABLET (FP) PO SCH (10:11)
[2017-02-20] MEDS: diazePAM 5 MG TABLET PO PRN ×2 (10:11→22:10)
--- NOTE | 2017-02-20 14:06 | PN ---
BHS Progress Note (SOAP) Subjective: Sweating,interrupted sleep,restless Objective: 02/20/17 14:05 Vital Signs - 8 hr 02/20/17 09:30 Temperature 97.5 F L Pulse Rate 79 Respiratory 18 Rate Blood Pressure 134/84 Laboratory Tests 02/18/17 02/18/17 02/18/17 07:20 07:20 07:20 WBC RBC Hgb Hct MCV MCH MCHC RDW Plt Count MPV Sodium 140 Potassium 4.0 Chloride 106 Carbon Dioxide 28 Anion Gap 6 L BUN 15 Creatinine 0.9 Creat Clearance w eGFR > 60 Random Glucose 81 Calcium 8.7 Total Bilirubin 0.3 D AST 11 L ALT 34 D Alkaline Phosphatase 55 Total Protein 6.4 Albumin 3.4 Urine Color Urine Appearance Urine pH Ur Specific [place] Urine Protein Urine Glucose (UA) Urine Ketones Urine Blood Urine Nitrite Urine Bilirubin Urine Urobilinogen Ur Leukocyte Esterase RPR Titer Nonreactive HIV 1&2 Antibody Screen Negative HIV P24 Antigen Negative 02/18/17 02/18/17 08:15 23:00 WBC 6.9 RBC 5.18 Hgb 14.5 Hct 43.7 MCV 84.4 MCH 28.0 MCHC 33.2 RDW 12.9 Plt Count 217 MPV 9.0 Sodium Potassium Chloride Carbon Dioxide Anion Gap BUN Creatinine Creat Clearance w eGFR Random Glucose Calcium Total Bilirubin AST ALT Alkaline Phosphatase Total Protein Albumin Urine Color Ltyellow Urine Appearance Clear Urine pH 7.0 Ur Specific [place] 1.015 Urine Protein Negative Urine Glucose (UA) Negative Urine Ketones Negative Urine Blood Negative Urine Nitrite Negative Urine Bilirubin Negative Urine Urobilinogen Negative Ur Leukocyte Esterase Negative RPR Titer HIV 1&2 Antibody Screen HIV P24 Antigen labs noted Assessment: 02/20/17 14:06 Withdrawal sx. Plan: Continue detox
[2017-02-20] MEDS: THIAMINE HCL 100 MG TABLET (FP) PO SCH (22:14)
[2017-02-20] MEDS: diphenhydrAMINE HCL 50 MG CAPSULE PO PRN (22:14)
[2017-02-20] MEDS: BACLOFEN 10 MG TABLET (FP) PO PRN (22:16)
[2017-02-21] MEDS ORDERED: METHADONE HCL 10 MG TABLET (FOR DETOX USE ONLY) PO ONE (10:00)
[2017-02-21] MEDS: PRENATAL VITAMINS W/ FOLIC ACID TABLET (FP) PO SCH (10:10)
[2017-02-21] MEDS: NICOTINE POLACRILEX 2 MG GUM BC PRN (14:43)
--- NOTE | 2017-02-21 16:48 | PN ---
BHS Progress Note (SOAP) Subjective: Anxious, sweating, interrupted sleep Objective: 02/21/17 16:45 Last Vital Signs Temp Pulse Resp BP Pulse Ox 96.1 F L 95 H 20 121/54 02/21/17 13:16 02/21/17 13:16 02/21/17 13:16 02/21/17 13:16 Laboratory Tests 02/18/17 02/18/17 02/18/17 07:20 07:20 07:20 WBC RBC Hgb Hct MCV MCH MCHC RDW Plt Count MPV Sodium 140 Potassium 4.0 Chloride 106 Carbon Dioxide 28 Anion Gap 6 L BUN 15 Creatinine 0.9 Creat Clearance w eGFR > 60 Random Glucose 81 Calcium 8.7 Total Bilirubin 0.3 D AST 11 L ALT 34 D Alkaline Phosphatase 55 Total Protein 6.4 Albumin 3.4 Urine Color Urine Appearance Urine pH Ur Specific [place] Urine Protein Urine Glucose (UA) Urine Ketones Urine Blood Urine Nitrite Urine Bilirubin Urine Urobilinogen Ur Leukocyte Esterase RPR Titer Nonreactive HIV 1&2 Antibody Screen Negative HIV P24 Antigen Negative 02/18/17 02/18/17 08:15 23:00 WBC 6.9 RBC 5.18 Hgb 14.5 Hct 43.7 MCV 84.4 MCH 28.0 MCHC 33.2 RDW 12.9 Plt Count 217 MPV 9.0 Sodium Potassium Chloride Carbon Dioxide Anion Gap BUN Creatinine Creat Clearance w eGFR Random Glucose Calcium Total Bilirubin AST ALT Alkaline Phosphatase Total Protein Albumin Urine Color Ltyellow Urine Appearance Clear Urine pH 7.0 Ur Specific [place] 1.015 Urine Protein Negative Urine Glucose (UA) Negative Urine Ketones Negative Urine Blood Negative Urine Nitrite Negative Urine Bilirubin Negative Urine Urobilinogen Negative Ur Leukocyte Esterase Negative RPR Titer HIV 1&2 Antibody Screen HIV P24 Antigen Labs noted Assessment: 02/21/17 16:47 Withdrawal symptoms Plan: Continue detox
[2017-02-21] MEDS: THIAMINE HCL 100 MG TABLET (FP) PO SCH (22:08)
[2017-02-21] MEDS: diphenhydrAMINE HCL 50 MG CAPSULE PO PRN (22:08)
[2017-02-22] MEDS ORDERED: METHADONE HCL 5 MG TABLET (FOR DETOX USE ONLY) PO ONE (06:00)
[2017-02-22 06:12] VITALS: BP 116/64; PULSE 61; TEMP 96.6
[2017-02-22] MEDS: PRENATAL VITAMINS W/ FOLIC ACID TABLET (FP) PO SCH (10:17)
--- NOTE | 2017-02-22 12:46 | DS ---
[facility] Detox Discharge Summary Admission Date: 02/17/17 Discharge Date: 02/22/17 - History Present History: Cannabis Dependence, Opioid Dependence, Sedative Dependence Additional Comments: PATIENT GOING [facility] FOR AFTERCARE. PATIENT WAS DISCHARGED FROM DETOX UNIT IN STABLE MEDICAL CONDITION. Pertinent Past History: Depression, Nicotine Dependence, Low Back Pain, History of Panic Attacks. - Physical Exam Results Vital Signs: Vital Signs Temperature 96.6 F L 02/22/17 06:12 Pulse Rate 61 02/22/17 06:12 Respiratory Rate 18 02/22/17 06:12 Blood Pressure 116/64 02/22/17 06:12 O2 Sat by Pulse Oximetry (%) Pertinent Admission Physical Exam Findings: WITHDRAWAL SYMPTOMS. Laboratory Tests 02/18/17 02/18/17 02/18/17 07:20 07:20 07:20 WBC RBC Hgb Hct MCV MCH MCHC RDW Plt Count MPV Sodium 140 Potassium 4.0 Chloride 106 Carbon Dioxide 28 Anion Gap 6 L BUN 15 Creatinine 0.9 Creat Clearance w eGFR > 60 Random Glucose 81 Calcium 8.7 Total Bilirubin 0.3 D AST 11 L ALT 34 D Alkaline Phosphatase 55 Total Protein 6.4 Albumin 3.4 Urine Color Urine Appearance Urine pH Ur Specific [place] Urine Protein Urine Glucose (UA) Urine Ketones Urine Blood Urine Nitrite Urine Bilirubin Urine Urobilinogen Ur Leukocyte Esterase RPR Titer Nonreactive HIV 1&2 Antibody Screen Negative HIV P24 Antigen Negative 02/18/17 02/18/17 08:15 23:00 WBC 6.9 RBC 5.18 Hgb 14.5 Hct 43.7 MCV 84.4 MCH 28.0 MCHC 33.2 RDW 12.9 Plt Count 217 MPV 9.0 Sodium Potassium Chloride Carbon Dioxide Anion Gap BUN Creatinine Creat Clearance w eGFR Random Glucose Calcium Total Bilirubin AST ALT Alkaline Phosphatase Total Protein Albumin Urine Color Ltyellow Urine Appearance Clear Urine pH 7.0 Ur Specific [place] 1.015 Urine Protein Negative Urine Glucose (UA) Negative Urine Ketones Negative Urine Blood Negative Urine Nitrite Negative Urine Bilirubin Negative Urine Urobilinogen Negative Ur Leukocyte Esterase Negative RPR Titer HIV 1&2 Antibody Screen HIV P24 Antigen LABS NOTED. - Treatment Hospital Course: Detox Protocol Followed, Detoxed Safely, Responded well, Discharged Condition Good Patient has Accepted a Rehab Referral to: PT. [facility]ING TO [facility]. - Medication Discharge Medications: Ambulatory Orders NK [No Known Home Medication] 02/17/17 - Diagnosis (1) Amphetamine abuse Status: Acute (2) Drug-induced mood disorder Status: Acute (3) Heroin dependence Status: Acute (4) MDD (major depressive disorder) Status: Acute Qualifiers: Major depression recurrence: recurrent Active/Remission status: remission status unspecified Qualified Code(s): F33.9 - Major depressive disorder, recurrent, unspecified; F33.9 - Major depressive disorder, recurrent, unspecified; F33.9 - Major depressive disorder, recurrent, unspecified; F33.9 - Major depressive disorder, recurrent, unspecified (5) Nicotine dependence Status: Acute Qualifiers: Nicotine product type: cigarettes Substance use status: in withdrawal Qualified Code(s): F17.213 - Nicotine dependence, cigarettes, with withdrawal; F17.213 - Nicotine dependence, cigarettes, with withdrawal (6) Opioid dependence with withdrawal Status: Acute (7) Panic attack Status: Acute (8) Sedative hypnotic or anxiolytic dependence Status: Acute (9) Cannabis dependence Status: Chronic (10) Low back pain Status: Chronic Qualifiers: Chronicity: chronic Back pain laterality: midline Sciatica presence : without sciatica Qualified Code(s): M54.5 - Low back pain; M54.5 - Low back pain (11) Depressed Status: Suspected Qualifiers: Depression Type: dysthymia Qualified Code(s): F34.1 - Dysthymic disorder; F34.1 - Dysthymic disorder; F34.1 - Dysthymic disorder - AMA Did Patient Leave Against Medical Advice: No
== END 2017-02-22 09:20 | disposition home or self-care (01) | DRG 897 ==
LOC: YASAS 22:01 → Y3N 22:33
PROVIDERS: ADMIT Internal Medicine; ATTEND Internal Medicine
PROC: HZ2ZZZZ Detoxification Services for Substance Abuse Treatment (ICD-10-PCS; principal; 2017-02-17)
DX: F19.230 Other psychoactive substance dependence with withdrawal, uncomplicated (principal); F13.20 Sedative, hypnotic or anxiolytic dependence, uncomplicated; F33.9 Major depressive disorder, recurrent, unspecified; F11.23 Opioid dependence with withdrawal; F12.20 Cannabis dependence, uncomplicated; F15.10 Other stimulant abuse, uncomplicated; F17.213 Nicotine dependence, cigarettes, with withdrawal; F41.0 Panic disorder [episodic paroxysmal anxiety]; F19.24 Other psychoactive substance dependence with psychoactive substance-induced mood disorder; M54.5 Low back pain; G89.29 Other chronic pain
CPT/HCPCS: 36415; 80053; 81003; 85027; 86593; 87389; 93005; 93010; J0475

== ENCOUNTER 2017-04-29 22:51 | Inpatient (IN) | payer OTHER ==
[2017-04-29 22:58] VITALS: BMI 28.6
[2017-04-29] MEDS ORDERED: METHADONE HCL 10 MG TABLET (FOR DETOX USE ONLY) PO ONE ×2 (23:00→23:18)
--- NOTE | 2017-04-29 23:08 | HP ---
COWS - Scale Resting Pulse: 4= [place] > 121 Sweatin= Chills/Flushing Restless Observation: 3= Extraneous Movement Pupil Size: 0= Normal to Room Light Bone or Joint Aches: 2= Severe Diffuse Aches Runny Nose/ Eye Tearin= Runny Nose/Eyes GI Upset > 30mins: 2= Nausea/Diarrhea Tremor Observation: 2= Slight Tremor Visible Yawning Observation: 0= None Anxiety or Irritability: 2=Irritable/Anxious Goose Flesh Skin: 0=Smooth Skin COWS Score: 18 Admission [facility] - [facility] Chief Complaint: withdrawal sx Allergies/Adverse Reactions: Allergies Allergy/AdvReac Type Severity Reaction Status Date / Time No Known Drug Allergies Allergy Verified 03/16/17 14:32 lactose AdvReac Severe Vomiting Verified 03/10/17 19:12 NKDA Allergy Uncoded 03/10/17 19:13 History of Present Illness: 32 years old male with long history of heroin nicotine dependence has depression and anxiety is admitted to detox Exam Limitations: No Limitations - Ebola screening Have you traveled outside of the country in the last 21 days: No Have you had contact with anyone from an Ebola affected area: No Have you been sick,other than usual withdrawal symptoms: No Do you have a fever: No - Review of Systems Constitutional: Changes in sleep, Weight Stable EENT: reports: No Symptoms Reported Respiratory: reports: No Symptoms reported Cardiac: reports: No Symptoms Reported GI: reports: Nausea, Poor Fluid Intake, Abdominal cramping : reports: No Symptoms Reported Musculoskeletal: reports: Back Pain, Joint Pain, Muscle Pain, Neck Pain Integumentary: reports: Change in Color (right and left inner elbows) Neuro: reports: No Symptoms reported Endocrine: reports: No Symptoms Reported Hematology: reports: No Symptoms Reported Psychiatric: reports: Judgement Intact, Orientated x3, Anxious, Depressed Other Systems: Reviewed and Negative Patient History - Patient Medical History Hx Anemia: No Hx Asthma: No Hx Chronic Obstructive Pulmonary Disease (COPD): No Hx Cancer: No Hx Cardiac Disorders: No Hx Congestive Heart Failure: No Hx Hypertension: No Hx Hypercholesterolemia: No Hx Pacemaker: No HX Cerebrovascular Accident: No Hx Seizures: No Hx Dementia: No Hx Diabetes: No Hx Gastrointestinal Disorders: No Hx Liver Disease: No Hx Genitourinary Disorders: No Hx Sexually Transmitted Disorders: No Hx Renal Disease (ESRD): No Hx Thyroid Disease: No Hx Human Immunodeficiency Virus (HIV): No (2016 negative) Hx Hepatitis C: No Hx Depression: Yes Hx Suicide Attempt: No Hx Bipolar Disorder: No Hx Schizophrenia: No - Patient Surgical History Past Surgical History: No Hx Neurologic Surgery: No Hx Cataract Extraction: No Hx Cardiac Surgery: No Hx Lung Surgery: No Hx Breast Surgery: No Hx Breast Biopsy: No Hx Abdominal Surgery: No Hx Appendectomy: No Hx Cholecystectomy: No Hx Genitourinary Surgery: No Hx Orthopedic Surgery: No - PPD History Previous Implant?: Yes Documented Results: Negative w/proof Implanted On Prior [facility] Admission?: Yes Date: 01/08/17 Results: 0MM PPD to be Administered?: No - Smoking Cessation Smoking history: Current every day smoker Have you smoked in the past 12 months: Yes Aproximately how many cigarettes per day: 4 Cigars Per Day: 0 Hx Chewing Tobacco Use: No Initiated information on smoking cessation: Yes 'Breaking Loose' booklet given: 04/29/17 - Substance & Tx. History Hx Alcohol Use: No Hx Substance Use: Yes Substance Use Type: Cocaine, Opiates Hx Substance Use Treatment: Yes (03/2017) - Substances Abused Heroin Route: Injection Frequency: Daily Amount used: 15 bags Age of first use: 28 Date of Last Use: 04/28/17 Family Disease History - Family Disease History Family Disease History: CA: Grandparent (MATERNAL), Other: Mother (LUPUS OA) Admission Physical Exam BHS - Vital Signs Vital Signs: Vital Signs - 24 hr 04/29/17 22:57 Temperature 96.6 F L Pulse Rate 127 H Respiratory 18 Rate Blood Pressure 133/96 - Physical General Appearance: Yes: Appropriately Dressed, Mild Distress, Tremorous, Irritable, Sweating, Anxious HEENTM: Yes: Hearing grossly Normal, Normal ENT Inspection, Normocephalic, Normal Voice Respiratory: Yes: Chest Non-Tender, Lungs Clear, Normal Breath Sounds, No Respiratory Distress, No Accessory Muscle Use Neck: Yes: Supple, Trachea in good position Breast: Yes: Breasts Symetrical Cardiology: Yes: Regular Rhythm, S1, S2, Tachycardia Abdominal: Yes: Non Tender, Soft, Increased Bowel Sounds Genitourinary: Yes: Within Normal Limits Back: Yes: Normal Inspection Musculoskeletal: Yes: full range of Motion, Gait Steady, Back pain, Muscle Pain Extremities: Yes: Normal Range of Motion, Non-Tender, Tremors Neurological: Yes: Fully Oriented, Alert, Motor Strength 5/5, Normal Response, Depressed Affect Integumentary: Yes: Warm, Track [place] Lymphatic: Yes: Within Normal Limits - Diagnostic (1) Anxious depression Current Visit: Yes Status: Suspected (2) Nicotine dependence Current Visit: Yes Status: Acute Qualifiers: Nicotine product type: cigarettes Substance use status: in withdrawal Qualified Code(s): F17.213 - Nicotine dependence, cigarettes, with withdrawal (3) Low back pain Current Visit: Yes Status: Chronic Qualifiers: Chronicity: chronic Back pain laterality: midline Sciatica presence: without sciatica Qualified Code(s): M54.5 - Low back pain Cleared for Admission [facility] - Detox or Rehab [facility] Level of Care: Medically Managed Detox Regimen/Protocol: Methadone [facility] Breath Alcohol Content Breath Alcohol Content: 0 Urine Drug Screen - Results Drug Screen Negative: No Urine Drug Screen Results: ROSEMARIE-Cocaine, OPI-Opiates, OXY-Oxycodone
[2017-04-29] MEDS ORDERED: LOPERAMIDE HCL 2 MG CAPSULE PO PRN (23:18)
[2017-04-29] MEDS ORDERED: diazePAM 5 MG TABLET PO PRN (23:18)
[2017-04-29] MEDS ORDERED: MAG HYDROX/AL HYDROX/SIMETH 30 ML UNIT-DOSE CUP PO PRN (23:18)
[2017-04-29] MEDS ORDERED: ACETAMINOPHEN 325 MG TABLET (FP) PO PRN (23:18)
[2017-04-29] MEDS ORDERED: IBUPROFEN 400 MG TABLET (FP) PO PRN (23:18)
[2017-04-29] MEDS ORDERED: MAGNESIUM HYDROX 2400MG/30ML ORAL SUSPENSION 30 ML CUP PO PRN (23:18)
[2017-04-29] MEDS ORDERED: NICOTINE POLACRILEX 2 MG GUM BC PRN (23:18)
[2017-04-29] MEDS ORDERED: MAGNESIUM CITRATE 300 ML BOTTLE PO PRN (23:18)
[2017-04-29] MEDS ORDERED: cloNIDine HCL 0.1 MG TABLET PO PRN (23:25)
[2017-04-29] MEDS ORDERED: GABAPENTIN 300 MG CAPSULE (FP) PO SCH (23:30)
[2017-04-30] MEDS ORDERED: METHADONE HCL 10 MG TABLET (FOR DETOX USE ONLY) PO ONE ×4 (00:01→23:00)
[2017-04-30] MEDS: diazePAM 5 MG TABLET PO PRN ×4 (00:38→17:19)
[2017-04-30] MEDS: LIDOCAINE PATCH REMOVAL MC SCH ×2 (01:56→22:16)
[2017-04-30] MEDS: METHOCARBAMOL 500 MG TABLET PO SCH ×4 (01:57→22:15)
[2017-04-30] MEDS: GABAPENTIN 100 MG CAPSULE (FP) PO SCH ×3 (06:26→22:15)
[2017-04-30] MEDS: MENTHOL/PHENOL 1 EACH UD MM PRN ×4 (06:27→22:49)
[2017-04-30 09:49] LABS: WHITE BLOOD COUNT 9.6 K/mm3 (4.0-10.0)
[2017-04-30 09:51] LABS: HEMATOCRIT 48.6 % (35.4-49); HEMOGLOBIN 15.9 GM/dL (11.7-16.9); MCH 29.1 pg (25.7-33.7); MCHC 32.8 g/dl (32.0-35.9); MEAN CELL VOLUME 88.7 fl (80-96); MEAN PLT VOLUME 9.8 fl (7.5-11.1); PLATELET COUNT 222 K/MM3 (134-434); RBC 5.48 M/mm3 (4.00-5.60); RDW 13.4 % (11.9-15.9)
--- NOTE | 2017-04-30 09:51 | EKG ---
Test Reason : Blood Pressure : / mmHG Vent. Rate : 098 BPM Atrial Rate : 098 BPM P-R Int : 150 ms QRS Dur : 096 ms QT Int : 334 ms P-R-T Axes : 061 -10 030 degrees QTc Int : 426 ms NORMAL SINUS RHYTHM POSSIBLE LEFT ATRIAL ENLARGEMENT INCOMPLETE RIGHT BUNDLE BRANCH BLOCK WHEN COMPARED WITH ECG OF 10-MAR-2017 22:28, VENT. RATE HAS INCREASED BY 40 BPM Confirmed by JOSETTE HOGAN MD ([id number]) on 04/30/2017 9:51:03 AM Referred By: Confirmed By:JOSETTE HOGAN MD
[2017-04-30 10:02] LABS: CHLORIDE 104 mmol/L (98-107); POTASSIUM 3.7 mmol/L (3.5-5.1); SODIUM 139 mmol/L (136-145)
[2017-04-30 10:20] LABS: ALBUMIN 3.6 g/dl (3.4-5.0); ALK PHOS 67 U/L (45-117); ANION GAP 9 (8-16); BILIRUBIN,TOTAL 0.9 mg/dL (0.2-1.0); BLOOD UREA NITROGEN 13 mg/dL (7-18); CALCIUM 8.3 mg/dL (8.5-10.1); CO2 26 mmol/L (21-32); CREATININE 1.4 mg/dL (0.7-1.3); GLUCOSE,RANDOM 80 mg/dL (74-106); SGOT/AST 13 U/L (15-37); SGPT/ALT 25 U/L (12-78); TOT PROT 6.9 g/dl (6.4-8.2)
[2017-04-30] MEDS: PRENATAL VITAMINS W/ FOLIC ACID TABLET (FP) PO SCH (10:37)
[2017-04-30] MEDS: LIDOCAINE 5% TOPICAL PATCH TP SCH (10:37)
[2017-04-30] MEDS: NICOTINE 14 MG/24 HOURS TOPICAL PATCH TD SCH (10:37)
--- NOTE | 2017-04-30 11:17 | CONSULT ---
[facility] Psychiatric Consult - Data Date of interview: 04/30/17 Admission source: [facility] Identifying data: Another admission to [facility] for this 32 y/o male seeking detox treatment on for cocaine and heroin dependence.Patient is ,a father of two,domiciled,unemployed and supported on SSI benefits. Substance Abuse History: Discussed in this session.Confirmed by patient.See details in current [facility] report : Smoking history: Current every day smoker. Have you smoked in the past 12 months: Yes. Aproximately how many cigarettes per day: 4. Cigars Per Day: 0. Hx Chewing Tobacco Use: No. Initiated information on smoking cessation: Yes. 'Breaking Loose' booklet given: . - Substance & Tx. History. Hx Alcohol Use: No. Hx Substance Use: Yes. Substance Use Type: Cocaine, Opiates. Hx Substance Use Treatment: Yes (03/2017) . - Substances Abused. Heroin. Route: Injection. Frequency: Daily. Amount used: 15 bags. Age of first use: 28. Date of Last Use: 04/28/17 Medical History: Patient endorses good general health.Noted past history of lower back pain and DVT's (lower extremities). Psychiatric History: Patient admits to past hospitalizations at [facility] during adolescence.Diagnosed early in life with MDD and Anxiety Disorder.Treated in the past with various agents (valproate,risperdal,sertraline ,fluoxetine,paroxetine,quetiapine and bupropion).patient reports that he used to see a private psychiatrist in [place] for therapy and medication mangement.Mr Couch states that he has dropped out of outpatient psychiatric care for several months (in spite recent admissions to detox/rehab facilities) .Never followed up after discharge.Declines option of resumption of antidepressant medications,including wellbutrin and trazodone.No reported history of suicide attempts. Physical/Sexual Abuse/Trauma History: Patient declines to discuss this domain. Additional Comment: Urine Drug Screen Results: ROSEMARIE-Cocaine, OPI-Opiates, OXY- Oxycodone.Noted. Mental Status Exam - Mental Status Exam Alert and Oriented to: Time, Place, Person Cognitive Function: Good Patient Appearance: Well Groomed (covered with tattoos : arms,forearms,chest and back) Mood: Hopeful, Euthymic Affect: Appropriate, Normal Range Patient Behavior: Appropriate, Cooperative Speech Pattern: Clear, Appropriate Voice Loudness: Normal Thought Process: Intact, Goal Oriented Thought Disorder: Not Present Hallucinations: Denies Suicidal Ideation: Denies Homicidal Ideation: Denies Insight/Judgement: Poor Sleep: Poorly (patient requests seroquel ), Difficulty falling asleep Appetite: Good Muscle strength/Tone: Normal Gait/Station: Normal Psychiatric Findings - Problem List ([place] 1, 2,3) (1) Opioid dependence with withdrawal Current Visit: Yes Status: Acute (2) Cocaine dependence Current Visit: Yes Status: Acute (3) Nicotine dependence Current Visit: Yes Status: Acute Qualifiers: Nicotine product type: cigarettes Substance use status: in withdrawal Qualified Code(s): F17.213 - Nicotine dependence, cigarettes, with withdrawal (4) Substance induced mood disorder Current Visit: Yes Status: Acute (5) Insomnia Current Visit: Yes Status: Acute - Initial Treatment Plan Initial Treatment Plan: Previous records are reviewed.Psychoeducation provided, Support.Sleep hygiene discussed in session.Detoxification in effect.Seroquel 100 mg po hs (sarina address insomnia).Ordered at patient's specific request.Side effects/benefits are discussed with patient.Consent (verbal) given.Observation.
[2017-04-30] MEDS: guaiFENesin/D-METHORPHAN HB 10 ML UNIT-DOSE CUPS PO PRN ×3 (11:41→22:48)
--- NOTE | 2017-04-30 12:58 | PN ---
S COWS - Scale Resting Pulse: 1= OR 81-100 Sweatin= Chills/Flushing Restless Observation: 3= Extraneous Movement Pupil Size: 0= Normal to Room Light Bone or Joint Aches: 4=Acute Joint/Muscle Pain Runny Nose/ Eye Tearin= Nasal Congestion GI Upset > 30mins: 0= None Tremor Observation of Outstretched Hands: 1= Tremor [place], Not Seen Yawning Observation: 1= 1-2x During Session Anxiety or Irritability: 2=Irritable/Anxious Goose Flesh Skin: 0=Smooth Skin COWS Score: 14 S Progress Note (SOAP) Subjective: ANXIETY,SWEATS,FATIGUE. Objective: 04/30/17 12:57 Vital Signs 04/30/17 04/30/17 06:20 09:17 Temperature 98.1 F 97.1 F L Pulse Rate 85 93 H Respiratory 16 18 Rate Blood Pressure 100/58 114/72 Laboratory Last Values WBC 9.6 K/mm3 (4.0-10.0) D 04/30/17 07:30 RBC 5.48 M/mm3 (4.00-5.60) 04/30/17 07:30 Hgb 15.9 GM/dL (11.7-16.9) 04/30/17 07:30 Hct 48.6 % (35.4-49) 04/30/17 07:30 MCV 88.7 fl (80-96) 04/30/17 07:30 MCH 29.1 pg (25.7-33.7) 04/30/17 07:30 MCHC 32.8 g/dl (32.0-35.9) 04/30/17 07:30 RDW 13.4 % (11.9-15.9) 04/30/17 07:30 Plt Count 222 K/MM3 (134-434) D 04/30/17 07:30 MPV 9.8 fl (7.5-11.1) 04/30/17 07:30 Sodium 139 mmol/L (136-145) 04/30/17 07:30 Potassium 3.7 mmol/L (3.5-5.1) 04/30/17 07:30 Chloride 104 mmol/L (98-107) 04/30/17 07:30 Carbon Dioxide 26 mmol/L (21-32) 04/30/17 07:30 Anion Gap 9 (8-16) 04/30/17 07:30 BUN 13 mg/dL (7-18) 04/30/17 07:30 Creatinine 1.4 mg/dL (0.7-1.3) H D 04/30/17 07:30 Creat Clearance w eGFR 58.37 (>60) 04/30/17 07:30 Random Glucose 80 mg/dL (74-106) 04/30/17 07:30 Calcium 8.3 mg/dL (8.5-10.1) L 04/30/17 07:30 Total Bilirubin 0.9 mg/dL (0.2-1.0) 04/30/17 07:30 AST 13 U/L (15-37) L D 04/30/17 07:30 ALT 25 U/L (12-78) D 04/30/17 07:30 Alkaline Phosphatase 67 U/L (45-117) 04/30/17 07:30 Total Protein 6.9 g/dl (6.4-8.2) 04/30/17 07:30 Albumin 3.6 g/dl (3.4-5.0) 04/30/17 07:30 RPR Titer Nonreactive (NONREACTIVE) 04/30/17 07:30 Assessment: 04/30/17 12:57 WITHDRAWAL SX Plan: CONTINUE DETOX
[2017-04-30] MEDS: QUEtiapine FUMARATE 100 MG TABLET (FP) PO SCH (22:15)
[2017-04-30] MEDS: THIAMINE HCL 100 MG TABLET (FP) PO SCH (22:15)
[2017-05-01] MEDS: METHOCARBAMOL 500 MG TABLET PO SCH ×3 (06:28→22:03)
[2017-05-01] MEDS: GABAPENTIN 100 MG CAPSULE (FP) PO SCH ×3 (06:28→22:03)
[2017-05-01] MEDS ORDERED: METHADONE HCL 10 MG TABLET (FOR DETOX USE ONLY) PO ONE (10:00)
[2017-05-01] MEDS ORDERED: METHADONE HCL 5 MG TABLET (FOR DETOX USE ONLY) PO ONE (10:00)
[2017-05-01] MEDS: LIDOCAINE 5% TOPICAL PATCH TP SCH (10:41)
[2017-05-01] MEDS: PRENATAL VITAMINS W/ FOLIC ACID TABLET (FP) PO SCH (10:41)
[2017-05-01] MEDS: NICOTINE 14 MG/24 HOURS TOPICAL PATCH TD SCH (10:41)
[2017-05-01] MEDS: guaiFENesin/D-METHORPHAN HB 10 ML UNIT-DOSE CUPS PO PRN (12:23)
[2017-05-01] MEDS: MENTHOL/PHENOL 1 EACH UD MM PRN (12:24)
[2017-05-01] MEDS: P-EPHED 60MG/TRIPROLIDI 2.5MG TABLET PO PRN (12:25)
[2017-05-01] MEDS: diazePAM 5 MG TABLET PO PRN ×3 (13:20→22:04)
--- NOTE | 2017-05-01 13:32 | PN ---
BHS COWS - Scale Resting Pulse: 2= IN 101-120 Sweatin=Flushed/Facial Moisture Restless Observation: 1= Difficult to Sit Still Pupil Size: 0= Normal to Room Light Bone or Joint Aches: 2= Severe Diffuse Aches Runny Nose/ Eye Tearin= None GI Upset > 30mins: 0= None Tremor Observation of Outstretched Hands: 0= None Yawning Observation: 1= 1-2x During Session Anxiety or Irritability: 2=Irritable/Anxious Goose Flesh Skin: 3=Pil[place] COWS Score: 13 S Progress Note (SOAP) Subjective: Sweating, H/A, Body Aches. Objective: PT. A & O X 3, OBSERVED AMBULATING ON UNIT. NO ACUTE DISTRESS. 05/01/17 13:30 Vital Signs Temperature 97.0 F L 05/01/17 06:10 Pulse Rate 104 H 05/01/17 06:10 Respiratory Rate 18 05/01/17 06:10 Blood Pressure 127/71 05/01/17 06:10 O2 Sat by Pulse Oximetry (%) Laboratory Tests 04/30/17 04/30/17 04/30/17 07:30 07:30 07:30 WBC 9.6 D RBC 5.48 Hgb 15.9 Hct 48.6 MCV 88.7 MCH 29.1 MCHC 32.8 RDW 13.4 Plt Count 222 D MPV 9.8 Sodium 139 Potassium 3.7 Chloride 104 Carbon Dioxide 26 Anion Gap 9 BUN 13 Creatinine 1.4 H D Creat Clearance w eGFR 58.37 Random Glucose 80 Calcium 8.3 L Total Bilirubin 0.9 AST 13 L D ALT 25 D Alkaline Phosphatase 67 Total Protein 6.9 Albumin 3.6 RPR Titer Nonreactive LABS NOTED. UA RESULTS PENDING. 05/01/17 13:32 Assessment: 05/01/17 13:31 WITHDRAWAL SYMPTOMS. Plan: CONTINUE DETOX. INCREASE DAILY PO FLUID INTAKE.
[2017-05-01 16:03] LABS: URINE APPEARANCE CLEAR; URINE BILIRUBIN NEGATIVE (NEGATIVE); URINE BLOOD NEGATIVE (NEGATIVE); URINE COLOR LTYELLOW; URINE GLUCOSE (UA) NEGATIVE (NEGATIVE); URINE KETONE NEGATIVE (NEGATIVE); URINE LEUK ESTERASE NEGATIVE (NEGATIVE); URINE NITRITE NEGATIVE (NEGATIVE); URINE PROTEIN NEGATIVE (NEGATIVE)
[2017-05-01] MEDS: THIAMINE HCL 100 MG TABLET (FP) PO SCH (22:03)
[2017-05-01] MEDS: QUEtiapine FUMARATE 100 MG TABLET (FP) PO SCH (22:04)
[2017-05-01] MEDS: LIDOCAINE PATCH REMOVAL MC SCH (23:07)
[2017-05-02] MEDS: guaiFENesin/D-METHORPHAN HB 10 ML UNIT-DOSE CUPS PO PRN ×2 (03:49→13:37)
[2017-05-02] MEDS: MENTHOL/PHENOL 1 EACH UD MM PRN ×4 (03:49→22:35)
[2017-05-02] MEDS: GABAPENTIN 100 MG CAPSULE (FP) PO SCH ×3 (06:52→22:32)
[2017-05-02] MEDS: METHOCARBAMOL 500 MG TABLET PO SCH ×3 (06:52→22:33)
[2017-05-02] MEDS: P-EPHED 60MG/TRIPROLIDI 2.5MG TABLET PO PRN ×2 (09:04→18:17)
[2017-05-02] MEDS ORDERED: METHADONE HCL 5 MG TABLET (FOR DETOX USE ONLY) PO ONE ×2 (10:00)
[2017-05-02] MEDS: PRENATAL VITAMINS W/ FOLIC ACID TABLET (FP) PO SCH (10:27)
[2017-05-02] MEDS: LIDOCAINE 5% TOPICAL PATCH TP SCH (10:28)
[2017-05-02] MEDS: diazePAM 5 MG TABLET PO PRN (10:28)
[2017-05-02] MEDS: NICOTINE 14 MG/24 HOURS TOPICAL PATCH TD SCH (10:28)
--- NOTE | 2017-05-02 13:48 | PN ---
BHS Progress Note (SOAP) Subjective: Sweating, headache, anxious Objective: 05/02/17 13:46 Last Vital Signs Temp Pulse Resp BP Pulse Ox 98.3 F 101 H 21 154/86 05/02/17 13:19 05/02/17 13:19 05/02/17 13:19 05/02/17 13:19 Laboratory Tests 04/30/17 04/30/17 04/30/17 07:30 07:30 07:30 WBC 9.6 D RBC 5.48 Hgb 15.9 Hct 48.6 MCV 88.7 MCH 29.1 MCHC 32.8 RDW 13.4 Plt Count 222 D MPV 9.8 Sodium 139 Potassium 3.7 Chloride 104 Carbon Dioxide 26 Anion Gap 9 BUN 13 Creatinine 1.4 H D Creat Clearance w eGFR 58.37 Random Glucose 80 Calcium 8.3 L Total Bilirubin 0.9 AST 13 L D ALT 25 D Alkaline Phosphatase 67 Total Protein 6.9 Albumin 3.6 Urine Color Urine Appearance Urine pH Ur Specific [place] Urine Protein Urine Glucose (UA) Urine Ketones Urine Blood Urine Nitrite Urine Bilirubin Urine Urobilinogen Ur Leukocyte Esterase RPR Titer Nonreactive 05/01/17 13:11 WBC RBC Hgb Hct MCV MCH MCHC RDW Plt Count MPV Sodium Potassium Chloride Carbon Dioxide Anion Gap BUN Creatinine Creat Clearance w eGFR Random Glucose Calcium Total Bilirubin AST ALT Alkaline Phosphatase Total Protein Albumin Urine Color Ltyellow Urine Appearance Clear Urine pH 6.0 Ur Specific [place] 1.008 Urine Protein Negative Urine Glucose (UA) Negative Urine Ketones Negative Urine Blood Negative Urine Nitrite Negative Urine Bilirubin Negative Urine Urobilinogen 2.0 Ur Leukocyte Esterase Negative RPR Titer Labs noted: prerenal azotemia Assessment: 05/02/17 13:47 Withdrawal symptoms Noted with prerenal azotemia Plan: Continue detox Prerenal azotemia: encouraged to drink lots of water, repeat BMP
[2017-05-02] MEDS: THIAMINE HCL 100 MG TABLET (FP) PO SCH (22:32)
[2017-05-02] MEDS: LIDOCAINE PATCH REMOVAL MC SCH (22:33)
[2017-05-02] MEDS: QUEtiapine FUMARATE 100 MG TABLET (FP) PO SCH (22:33)
[2017-05-03] MEDS: GABAPENTIN 100 MG CAPSULE (FP) PO SCH ×3 (06:05→22:28)
[2017-05-03] MEDS: METHOCARBAMOL 500 MG TABLET PO SCH ×3 (06:05→22:28)
[2017-05-03] MEDS: PRENATAL VITAMINS W/ FOLIC ACID TABLET (FP) PO SCH (09:56)
[2017-05-03] MEDS: NICOTINE 14 MG/24 HOURS TOPICAL PATCH TD SCH (09:56)
[2017-05-03] MEDS: guaiFENesin/D-METHORPHAN HB 10 ML UNIT-DOSE CUPS PO PRN ×2 (09:57→22:30)
[2017-05-03] MEDS: LIDOCAINE 5% TOPICAL PATCH TP SCH (09:58)
[2017-05-03] MEDS ORDERED: METHADONE HCL 5 MG TABLET (FOR DETOX USE ONLY) PO ONE (10:00)
[2017-05-03] MEDS ORDERED: METHADONE HCL 10 MG TABLET (FOR DETOX USE ONLY) PO ONE (10:00)
[2017-05-03 12:16] LABS: ANION GAP 9 (8-16); BLOOD UREA NITROGEN 5 mg/dL (7-18); CALCIUM 8.8 mg/dL (8.5-10.1); CHLORIDE 106 mmol/L (98-107); CO2 27 mmol/L (21-32); GLUCOSE,RANDOM 75 mg/dL (74-106); POTASSIUM 3.9 mmol/L (3.5-5.1); SODIUM 142 mmol/L (136-145)
[2017-05-03 12:19] LABS: CREATININE 0.7 mg/dL (0.7-1.3)
--- NOTE | 2017-05-03 13:28 | PN ---
B[facility] Progress Note (SOAP) Subjective: DECREASED ANXIETY,BODY ACHES,SWEATS,INTERMITTENT SLEEP. Objective: 05/03/17 13:27 Vital Signs Temperature 96.4 F L 05/03/17 06:26 Pulse Rate 80 05/03/17 06:26 Respiratory Rate 18 05/03/17 06:26 Blood Pressure 129/65 05/03/17 06:26 O2 Sat by Pulse Oximetry (%) Laboratory Last Values WBC 9.6 K/mm3 (4.0-10.0) D 04/30/17 07:30 RBC 5.48 M/mm3 (4.00-5.60) 04/30/17 07:30 Hgb 15.9 GM/dL (11.7-16.9) 04/30/17 07:30 Hct 48.6 % (35.4-49) 04/30/17 07:30 MCV 88.7 fl (80-96) 04/30/17 07:30 MCH 29.1 pg (25.7-33.7) 04/30/17 07:30 MCHC 32.8 g/dl (32.0-35.9) 04/30/17 07:30 RDW 13.4 % (11.9-15.9) 04/30/17 07:30 Plt Count 222 K/MM3 (134-434) D 04/30/17 07:30 MPV 9.8 fl (7.5-11.1) 04/30/17 07:30 Sodium 142 mmol/L (136-145) 05/03/17 07:50 Potassium 3.9 mmol/L (3.5-5.1) 05/03/17 07:50 Chloride 106 mmol/L (98-107) 05/03/17 07:50 Carbon Dioxide 27 mmol/L (21-32) 05/03/17 07:50 Anion Gap 9 (8-16) 05/03/17 07:50 BUN 5 mg/dL (7-18) L D 05/03/17 07:50 Creatinine 0.7 mg/dL (0.7-1.3) D 05/03/17 07:50 Creat Clearance w eGFR 58.37 (>60) 04/30/17 07:30 Random Glucose 75 mg/dL (74-106) 05/03/17 07:50 Calcium 8.8 mg/dL (8.5-10.1) 05/03/17 07:50 Total Bilirubin 0.9 mg/dL (0.2-1.0) 04/30/17 07:30 AST 13 U/L (15-37) L D 04/30/17 07:30 ALT 25 U/L (12-78) D 04/30/17 07:30 Alkaline Phosphatase 67 U/L (45-117) 04/30/17 07:30 Total Protein 6.9 g/dl (6.4-8.2) 04/30/17 07:30 Albumin 3.6 g/dl (3.4-5.0) 04/30/17 07:30 Urine Color Ltyellow 05/01/17 13:11 Urine Appearance Clear 05/01/17 13:11 Urine pH 6.0 (5.0-8.0) 05/01/17 13:11 Ur Specific [place] 1.008 (1.001-1.035) 05/01/17 13:11 Urine Protein Negative (NEGATIVE) 05/01/17 13:11 Urine Glucose (UA) Negative (NEGATIVE) 05/01/17 13:11 Urine Ketones Negative (NEGATIVE) 05/01/17 13:11 Urine Blood Negative (NEGATIVE) 05/01/17 13:11 Urine Nitrite Negative (NEGATIVE) 05/01/17 13:11 Urine Bilirubin Negative (NEGATIVE) 05/01/17 13:11 Urine Urobilinogen 2.0 mg/dL (0.2-1.0) 05/01/17 13:11 Ur Leukocyte Esterase Negative (NEGATIVE) 05/01/17 13:11 RPR Titer Nonreactive (NONREACTIVE) 04/30/17 07:30 Assessment: 05/03/17 13:28 WITHDRAWAL SX Plan: CONTINUE DETOX
[2017-05-03] MEDS: MENTHOL/PHENOL 1 EACH UD MM PRN ×2 (15:17→22:30)
[2017-05-03] MEDS: THIAMINE HCL 100 MG TABLET (FP) PO SCH (22:28)
[2017-05-03] MEDS: QUEtiapine FUMARATE 100 MG TABLET (FP) PO SCH (22:28)
[2017-05-03] MEDS: LIDOCAINE PATCH REMOVAL MC SCH (22:29)
[2017-05-04] MEDS: GABAPENTIN 100 MG CAPSULE (FP) PO SCH ×4 (05:50→22:05)
[2017-05-04] MEDS: METHOCARBAMOL 500 MG TABLET PO SCH ×4 (05:50→22:05)
[2017-05-04] MEDS ORDERED: METHADONE HCL 5 MG TABLET (FOR DETOX USE ONLY) PO ONE (06:00)
[2017-05-04] MEDS: PRENATAL VITAMINS W/ FOLIC ACID TABLET (FP) PO SCH (09:54)
[2017-05-04] MEDS: LIDOCAINE 5% TOPICAL PATCH TP SCH (09:54)
[2017-05-04] MEDS: NICOTINE 14 MG/24 HOURS TOPICAL PATCH TD SCH (09:54)
[2017-05-04] MEDS: guaiFENesin/D-METHORPHAN HB 10 ML UNIT-DOSE CUPS PO PRN (09:56)
[2017-05-04] MEDS ORDERED: METHADONE HCL 10 MG TABLET (FOR DETOX USE ONLY) PO ONE (10:00)
--- NOTE | 2017-05-04 10:44 | PN ---
BHS Progress Note (SOAP) Subjective: Sweating, H/A, FAtigue. Patient reporting Nasal Congestion, Sore Throat, Cough, and H/A X several days with no improvement despite symptomatic treatment medications. Objective: PT. A & O X 3, OBSERVED AMBULATING ON UNIT. NO ACUTE DISTRESS. 05/04/17 10:41 Vital Signs Temperature 95.9 F L 05/04/17 09:45 Pulse Rate 69 05/04/17 09:45 Respiratory Rate 17 05/04/17 09:45 Blood Pressure 98/60 05/04/17 09:45 O2 Sat by Pulse Oximetry (%) Laboratory Tests 04/30/17 04/30/17 04/30/17 07:30 07:30 07:30 WBC 9.6 D RBC 5.48 Hgb 15.9 Hct 48.6 MCV 88.7 MCH 29.1 MCHC 32.8 RDW 13.4 Plt Count 222 D MPV 9.8 Sodium 139 Potassium 3.7 Chloride 104 Carbon Dioxide 26 Anion Gap 9 BUN 13 Creatinine 1.4 H D Creat Clearance w eGFR 58.37 Random Glucose 80 Calcium 8.3 L Total Bilirubin 0.9 AST 13 L D ALT 25 D Alkaline Phosphatase 67 Total Protein 6.9 Albumin 3.6 Urine Color Urine Appearance Urine pH Ur Specific [place] Urine Protein Urine Glucose (UA) Urine Ketones Urine Blood Urine Nitrite Urine Bilirubin Urine Urobilinogen Ur Leukocyte Esterase RPR Titer Nonreactive 05/01/17 05/03/17 13:11 07:50 WBC RBC Hgb Hct MCV MCH MCHC RDW Plt Count MPV Sodium 142 Potassium 3.9 Chloride 106 Carbon Dioxide 27 Anion Gap 9 BUN 5 L D Creatinine 0.7 D Creat Clearance w eGFR Random Glucose 75 Calcium 8.8 Total Bilirubin AST ALT Alkaline Phosphatase Total Protein Albumin Urine Color Ltyellow Urine Appearance Clear Urine pH 6.0 Ur Specific [place] 1.008 Urine Protein Negative Urine Glucose (UA) Negative Urine Ketones Negative Urine Blood Negative Urine Nitrite Negative Urine Bilirubin Negative Urine Urobilinogen 2.0 Ur Leukocyte Esterase Negative RPR Titer LABS NOTED. Assessment: 05/04/17 10:42 WITHDRAWAL SYMPTOMS. Plan: CONTINUE DETOX. AUGMENTIN, 875 MG PO BID FOR URI. INCREASE DAILY PO FLUID INTAKE.
[2017-05-04] MEDS: AMOX TR/POT CLAV 875MG/125MG TABLETS (FP) PO SCH ×2 (11:27→17:02)
[2017-05-04] MEDS: THIAMINE HCL 100 MG TABLET (FP) PO SCH (22:05)
[2017-05-04] MEDS: QUEtiapine FUMARATE 100 MG TABLET (FP) PO SCH (22:05)
[2017-05-04] MEDS: LIDOCAINE PATCH REMOVAL MC SCH (22:06)
[2017-05-05] MEDS ORDERED: METHADONE HCL 5 MG TABLET (FOR DETOX USE ONLY) PO ONE (06:00)
[2017-05-05] MEDS: METHOCARBAMOL 500 MG TABLET PO SCH (06:34)
[2017-05-05] MEDS: GABAPENTIN 100 MG CAPSULE (FP) PO SCH (06:34)
[2017-05-05] MEDS: AMOX TR/POT CLAV 875MG/125MG TABLETS (FP) PO SCH (07:05)
[2017-05-05 09:11] VITALS: BP 135/85; PULSE 82; TEMP 96.6
[2017-05-05] MEDS: LIDOCAINE 5% TOPICAL PATCH TP SCH (09:28)
[2017-05-05] MEDS: PRENATAL VITAMINS W/ FOLIC ACID TABLET (FP) PO SCH (09:28)
[2017-05-05] MEDS: NICOTINE 14 MG/24 HOURS TOPICAL PATCH TD SCH (09:30)
--- NOTE | 2017-05-05 12:50 | DS ---
[facility] Detox Discharge Summary Admission Date: 04/29/17 Discharge Date: 05/05/17 - History Present History: Cocaine Dependence, Opioid Dependence Additional Comments: PATIENT GOING TO [facility] ([facility]) FOR AFTERCARE. PRESCRIPTION FOR REMAINDER OF ANTIBIOTIC STARTED FOR PATIENT WHILE ADMITTED FOR DETOX FOR URI (AUGMENTIN) PATIENT WAS DISCHARGED FROM DETOX UNIT IN STABLE MEDICAL CONDITION. Pertinent Past History: Insomnia, Depression, Anxiety, Nicotine Dependence, Low Back Pain. - Physical Exam Results Vital Signs: Vital Signs Temperature 96.6 F L 05/05/17 09:10 Pulse Rate 82 05/05/17 09:10 Respiratory Rate 18 05/05/17 09:10 Blood Pressure 135/85 05/05/17 09:10 O2 Sat by Pulse Oximetry (%) Pertinent Admission Physical Exam Findings: WITHDRAWAL SYMPTOMS. Laboratory Tests 04/30/17 04/30/17 04/30/17 07:30 07:30 07:30 WBC 9.6 D RBC 5.48 Hgb 15.9 Hct 48.6 MCV 88.7 MCH 29.1 MCHC 32.8 RDW 13.4 Plt Count 222 D MPV 9.8 Sodium 139 Potassium 3.7 Chloride 104 Carbon Dioxide 26 Anion Gap 9 BUN 13 Creatinine 1.4 H D Creat Clearance w eGFR 58.37 Random Glucose 80 Calcium 8.3 L Total Bilirubin 0.9 AST 13 L D ALT 25 D Alkaline Phosphatase 67 Total Protein 6.9 Albumin 3.6 Urine Color Urine Appearance Urine pH Ur Specific [place] Urine Protein Urine Glucose (UA) Urine Ketones Urine Blood Urine Nitrite Urine Bilirubin Urine Urobilinogen Ur Leukocyte Esterase RPR Titer Nonreactive 05/01/17 05/03/17 13:11 07:50 WBC RBC Hgb Hct MCV MCH MCHC RDW Plt Count MPV Sodium 142 Potassium 3.9 Chloride 106 Carbon Dioxide 27 Anion Gap 9 BUN 5 L D Creatinine 0.7 D Creat Clearance w eGFR Random Glucose 75 Calcium 8.8 Total Bilirubin AST ALT Alkaline Phosphatase Total Protein Albumin Urine Color Ltyellow Urine Appearance Clear Urine pH 6.0 Ur Specific [place] 1.008 Urine Protein Negative Urine Glucose (UA) Negative Urine Ketones Negative Urine Blood Negative Urine Nitrite Negative Urine Bilirubin Negative Urine Urobilinogen 2.0 Ur Leukocyte Esterase Negative RPR Titer LABS NOTED. - Treatment Hospital Course: Detox Protocol Followed, Detoxed Safely, Responded well, Discharged Condition Good, Rehab Referral Accepted Patient has Accepted a Rehab Referral to: '[facility] ([facility]). - Medication Discharge Medications: Ambulatory Orders Bupropion HCl [Wellbutrin Xl -] 150 mg PO DAILY #30 tab.sr.24h 03/18/17 Trazodone HCl [Desyrel -] 100 mg PO HS #30 tablet 03/18/17 Quetiapine Fumarate [Seroquel] 100 mg PO HS #30 tablet 04/30/17 Amoxicillin/Potassium Clav [Augmentin 875-125 Tablet] 1 each PO BID 7 Days #14 tablet 05/05/17 - Diagnosis (1) Nicotine dependence Status: Chronic Qualifiers: Nicotine product type: cigarettes Substance use status: in withdrawal Qualified Code(s): F17.213 - Nicotine dependence, cigarettes, with withdrawal (2) Opioid dependence with withdrawal Status: Acute (3) Low back pain Status: Chronic Qualifiers: Chronicity: chronic Back pain laterality: midline Sciatica presence: without sciatica Qualified Code(s): M54.5 - Low back pain; G89.29 - Other chronic pain; G89.29 - Other chronic pain (4) Anxious depression Status: Suspected (5) Insomnia Status: Acute Qualifiers: Insomnia type: unspecified Qualified Code(s): G47.00 - Insomnia, unspecified (6) Nicotine dependence Status: Acute Qualifiers: Nicotine product type: cigarettes Substance use status: in withdrawal Qualified Code(s): F17.213 - Nicotine dependence, cigarettes, with withdrawal (7) Cocaine dependence Status: Acute Qualifiers: Substance use status: uncomplicated Qualified Code(s): F14.20 - Cocaine dependence, uncomplicated (8) Substance induced mood disorder Status: Acute - AMA Did Patient Leave Against Medical Advice: No
== END 2017-05-05 09:37 | disposition home or self-care (01) | DRG 897 ==
LOC: YASAS 22:51 → Y3N 23:40
PROVIDERS: ADMIT Internal Medicine; ATTEND Internal Medicine
PROC: HZ2ZZZZ Detoxification Services for Substance Abuse Treatment (ICD-10-PCS; principal; 2017-04-29)
DX: F19.230 Other psychoactive substance dependence with withdrawal, uncomplicated (principal); F14.20 Cocaine dependence, uncomplicated; F33.9 Major depressive disorder, recurrent, unspecified; F11.23 Opioid dependence with withdrawal; F17.213 Nicotine dependence, cigarettes, with withdrawal; F41.8 Other specified anxiety disorders; F19.24 Other psychoactive substance dependence with psychoactive substance-induced mood disorder; G47.00 Insomnia, unspecified; M54.5 Low back pain; G89.29 Other chronic pain; R79.89 Other specified abnormal findings of blood chemistry; R00.0 Tachycardia, unspecified; Z91.011 Allergy to milk products
CPT/HCPCS: 36415; 80048; 80053; 81003; 85027; 86593; 93005; 93010

== ENCOUNTER 2019-06-12 15:02 | Emergency (ER) | payer OTHER ==
[2019-06-12 15:10] VITALS: BP 142/91; PULSE 89; TEMP 98.9; BMI 28.7
--- NOTE | 2019-06-12 15:37 | PDOC ---
History of Present Illness - General Chief Complaint: Vomiting/Diarrhea Stated Complaint: VOMITING/DIARRHEA Time Seen by Provider: 06/12/19 15:09 History Source: Patient - History of Present Illness Initial Comments: 06/12/19 15:47 Mr. Couch is a 34 y/o M w/hx anxiety, depression, remote substance use disorder, recent admission for a pneumonia in [facility] in April p/w one day of N/V/D, hiccups. He reports that three days ago his daughter got sick with similar symptoms, and his had similar symptoms yesterday. He reports approx 6x nbnb diarrhea yesterday. He reports vomiting "constantly" yesterday, with dark brown vomitus. He denies any weakness, dizziness, confusion, abdominal pain, shortness of breath, chest pain. Past History - Past Medical History Allergies/Adverse Reactions: Allergies Allergy/AdvReac Type Severity Reaction Status Date / Time No Known Drug Allergies Allergy Verified 06/12/19 15:05 lactose AdvReac Severe Vomiting Verified 06/12/19 15:05 NKDA Allergy Uncoded 04/30/17 00:49 Home Medications: Ambulatory Orders Ondansetron [Zofran *Odt*] 4 mg SL TID 4 Days #12 od.tablet 06/12/19 Anemia: No Asthma: No Cancer: No Cardiac Disorders: No CVA: No COPD: No CHF: No Dementia: No Diabetes: No GI Disorders: No Disorders: No HTN: No Hypercholesterolemia: No Kidney Stones: No Liver Disease: No Seizures: No Thyroid Disease: No Other medical history: PT DENIES - Surgical History Abdominal Surgery: No Appendectomy: No Cardiac Surgery: No Cholecystectomy: No Lung Surgery: No Neurologic Surgery: No Orthopedic Surgery: No - Reproductive History Testicular Surgery: No - Psycho Social/Smoking Cessation Hx Smoking Status: Yes Smoking History: Current every day smoker Years of Tobacco Use: 5 Have you smoked in the past 12 months: Yes Number of Cigarettes Smoked Daily: 3 Cigars Per Day: 0 Information on smoking cessation initiated: Yes 'Breaking Loose' booklet given: 04/29/17 Hx Alcohol Use: No Drug/Substance Use Hx: No Substance Use Type: Cocaine, Opiates Hx Substance Use Treatment: Yes (03/2017) Review of Systems - Review of Systems Able to Perform ROS?: Yes Comments:: ROS: GENERAL/CONSTITUTIONAL: No fever or chills. No weakness. HEAD, EYES, EARS, NOSE AND THROAT: No change in vision. No ear pain or discharge. No sore throat. CARDIOVASCULAR: No chest pain or shortness of breath RESPIRATORY: No cough, wheezing, or hemoptysis. GASTROINTESTINAL: Nausea, vomiting, diarrhea. No constipation. GENITOURINARY: No dysuria, frequency, or change in urination. MUSCULOSKELETAL: No joint or muscle swelling or pain. No neck or back pain. SKIN: No rash NEUROLOGIC: No headache, vertigo, loss of consciousness, or change in strength/sensation. ENDOCRINE: No increased thirst. No abnormal weight change HEMATOLOGIC/LYMPHATIC: No anemia, easy bleeding, or history of blood clots. ALLERGIC/IMMUNOLOGIC: No hives or skin allergy. *Physical Exam - Vital Signs Last Vital Signs Temp Pulse Resp BP Pulse Ox 98.9 F 89 19 142/91 98 06/12/19 15:03 06/12/19 15:03 06/12/19 15:03 06/12/19 15:03 06/12/19 15:03 - Physical Exam PE: GENERAL: Awake, alert, and fully oriented, in no acute distress HEAD: No signs of trauma, normocephalic, atraumatic EYES: PERRLA, EOMI, sclera anicteric, conjunctiva clear ENT: Auricles normal inspection, hearing grossly normal, nares patent, oropharynx clear without exudates. Moist mucosa NECK: Normal ROM, supple, no lymphadenopathy, JVD, or masses LUNGS: No distress, speaks full sentences, clear to auscultation bilaterally HEART: Regular rate and rhythm, normal S1 and S2, no murmurs, rubs or gallops, peripheral pulses normal and equal bilaterally. ABDOMEN: Soft, nontender, normoactive bowel sounds. No guarding, no rebound. No masses EXTREMITIES : Normal inspection, Normal range of motion, no edema. No clubbing or cyanosis NEUROLOGICAL: Cranial nerves II through XII grossly intact. Normal speech, normal gait, no focal sensorimotor deficits SKIN: Warm, Dry, normal turgor, no rashes or lesions noted Medical Decision Making - Medical Decision Making 34M w/hx anxiety, depression, remote substance use disorder, recent admission for a pneumonia p/w one day of N/V/D, hiccups. Ddx includes viral gastroenteritis given family members with similar symptoms. Plan: Zofran for symptom management FOBT Dispo: Discharge --- FOBT - negative --- On reassessment, he reports feeling improved. Plan for discharge with close PCP follow up. Discharge - Discharge Information Problems reviewed: Yes Clinical Impression/Diagnosis: Diarrhea Qualifiers: Diarrhea type: presumed infectious Qualified Code(s): R19.7 - Diarrhea, unspecified Nausea and vomiting Qualifiers: Vomiting type: unspecified Vomiting Intractability: non-intractable Qualified Code(s): R11.2 - Nausea with vomiting, unspecified Condition: Stable Disposition: HOME - Admission No - Additional Discharge Information Prescriptions: Ondansetron [Zofran *Odt*] 4 mg SL TID 4 Days #12 od.tablet - Follow up/Referral - Patient Discharge Instructions Patient Printed Discharge Instructions: DI for Viral Gastroenteritis -- Adult Additional Instructions: You were seen in the ER for nausea, vomiting, diarrhea. This is most likely due to a viral infection - it should clear within the next few days. In the meantime, please keep a liquid diet and slowly progress to solid foods. We are sending a prescription for zofran, a medication that can help control your nausea and vomiting. Please take it as directed, up to 3 times daily (once every 8 hours). Follow up with your primary care provider as soon as possible, in the next 7 days. - Post Discharge Activity Work/Back to School Note: Back to Work
[2019-06-12] MEDS ORDERED: ONDANSETRON *ODT* 4 MG TABLET SL ONE (16:20)
[2019-06-12] MEDS ORDERED: ONDANSETRON *ODT* 4 MG TABLET ONE (16:24)
--- NOTE | 2019-06-12 17:18 | PDOC ---
Attending Attestation - Resident Resident Name: Maria LuisaEverardo - ED Attending Attestation I have performed the following: I have examined & evaluated the patient, The case was reviewed & discussed with the resident, I agree w/resident's findings & plan, Exceptions are as noted - HPI HPI: 06/12/19 17:16 Symptoms of gastroenteritis yesterday with nausea vomiting and diarrhea. Similar illness in family members. Today symptoms have resolved, although mild nausea persists. He is able to tolerate small amounts of fluids. No serious GI disease in the past - Physicial Exam PE: 06/12/19 17:16 PE: Afebrile, vital signs normal No pallor or icterus. ENT clear Neck supple without bruit mass or nodes Chest clear CV regular without murmur rub or gallop Abdomen nondistended. Bowel sounds normal. Soft without mass tenderness organomegaly Rectal exam: No masses or tenderness. Stool dark brown, guaiac negative. - Medical Decision Making 06/12/19 17:17 Assessment: Mild gastroenteritis, probably viral, resolving. No sign of GI bleeding Plan: Symptomatic treatment, clear liquid to light diet until symptoms completely resolved, return to ER if fever or abdominal pain, otherwise follow- up primary physician. No pain or other distress at discharge
== END 2019-06-12 17:23 | disposition home or self-care (01) ==
LOC: FER 15:02
DX: R11.2 Nausea with vomiting, unspecified (principal); R19.7 Diarrhea, unspecified; F17.210 Nicotine dependence, cigarettes, uncomplicated
CPT/HCPCS: 36415; 82272; 99283-25; Q0162

== ENCOUNTER 2019-12-14 16:19 | Emergency (ER) | payer OTHER ==
[2019-12-14 16:23] VITALS: BP 137/69; PULSE 99; TEMP 98.8; BMI 30.5
[2019-12-14] MEDS ORDERED: DIPHTH,PERTUSS(ACELL),TET 0.5 ML DISP.SYRIN IM ONE ×2 (17:01→17:05)
--- NOTE | 2019-12-19 12:07 | PDOC ---
Documentation entered by Ailin Crespo SCRIBE, acting as scribe for Joyce De Guzman MD. Joyce De Guzman MD: This documentation has been prepared by the Zak simmons Brenda, SCRIBE, under my direction and personally reviewed by me in its entirety. I confirm that the documentation accurately reflects all work, treatment, procedures, and medical decision making performed by me. History of Present Illness - General Chief Complaint: Injury Stated Complaint: RT HAND LACERATION History Source: Patient Exam Limitations: No Limitations - History of Present Illness Initial Comments: 12/14/19 16:41 The patient is a 34 year old male with no significant PMH who presents to the ED for evaluation of a laceration on his right palm s/p mechanical fall. The patient notes that he was chasing his dog, at which time he fell on concrete, hitting his right hand, causing a laceration on the medial side of his palm. Unknown last tetanus shot. The patient denies any dog bites. Denies head trauma/LOC. The patient denies chest pain, shortness of breath, headache and dizziness. Denies fever, chills, nausea, vomiting, diarrhea and constipation. Denies any other symptoms. Allergies: NKDA Past History - Medical History Allergies/Adverse Reactions: Allergies Allergy/AdvReac Type Severity Reaction Status Date / Time No Known Drug Allergies Allergy Verified 12/14/19 16:20 lactose AdvReac Severe Vomiting Verified 06/12/19 15:05 Home Medications: Ambulatory Orders NK [No Known Home Medication] 12/14/19 Anemia: No Asthma: No Cancer: No Cardiac Disorders: No CVA: No COPD: No CHF: No Dementia: No Diabetes: No GI Disorders: No Disorders: No HTN: No Hypercholesterolemia: No Kidney Stones: No Liver Disease: No Seizures: No Thyroid Disease: No - Surgical History Abdominal Surgery: No Appendectomy: No Cardiac Surgery: No Cholecystectomy: No Lung Surgery: No Neurologic Surgery: No Orthopedic Surgery: No - Reproductive History Testicular Surgery: No - Psycho-Social/Smoking History Smoking Status: Yes Smoking History: Current every day smoker Years of Tobacco Use: 5 Have you smoked in the past 12 months: Yes Number of Cigarettes Smoked Daily: 4 Cigars Per Day: 0 'Breaking Loose' booklet given: 04/29/17 Review of Systems - Review of Systems Able to Perform ROS?: Yes Comments:: 12/14/19 17:01 GEN: no fever, chills, night sweats, generalized weakness, malaise, or unintentional weight change HEENT: no ear pain, congestion, sore throat, vision change, or eye pain CV: no chest pain, palpitations, lightheadedness, syncope, or edema RESP: no cough, wheezing, or SOB GI: no abdominal pain, nausea, vomiting, diarrhea, constipation, or white/black/bloody stool : no dysuria, hematuria, frequency, incontinence, retention, or discharge MSK: no muscle weakness or pain, no joint swelling or pain NEURO: no headache, seizure, vertigo, imbalance, numbness, tingling, focal weakness, or difficulty walking/talking PSYCH: no insomnia, behavior change, SI, HI, or substance use SKIN: (+) Right hand laceration. no prurtitis, excessive dryness, jaundice, rash, or unexplained bruises ROS otherwise negative except as noted in HPI *Physical Exam - Vital Signs Initial Vital Signs Temp Pulse Resp BP Pulse Ox 98.8 F 99 H 18 137/69 96 12/14/19 16:19 12/14/19 16:19 12/14/19 16:19 12/14/19 16:19 12/14/19 16:19 - Physical Exam 12/14/19 16:59 GENERAL: nontoxic-appearing, A/Ox4, no distress, answers questions appropriately NECK/BACK: no midline ttp, no spinal stepoff or deformity, no hematoma, full ROM, neck supple CARDIOVASCULAR: regular rate/rhythm, no MGR, strong peripheral pulses, capillary refill <2 seconds, extremities wwp, no edema LUNGS/RESPIRATORY: no respiratory distress, CTAB GI/ABDOMEN: symmetric [id number], normoactive BS, soft, no ttp, no midline pulsatile masses : no CVA tenderness MSK/EXTREMITIES: no muscle atrophy, no acute deformity SKIN: (+) Right hand hypothenar eminence with 3 cm. Partial thickness linear laceration. Hemostatic. No debris. No neurovascular injury. Pulses intact. warm and dry, no pallor, no jaundice, no rash, no pathologic-appearing bruising, no skin breakdown. NEUROLOGICAL: GCS 15, CN II-XII grossly intact, 5/5 strength proximally and distally, no facial droop Procedures - Laceration/Wound Repair Right Anterior Medial Hand Wound Length: 2.6 to 5.0 cm Wound Explored: clean, no foreign body present Wound's Depth, Shape: linear Irrigated w/ Saline: Yes Betadine Prep: No Anesthesia: 1% Lidocaine Amount of Anesthetic (ccs): 3 Wound Repaired With: Sutures Suture Size/Type: 4:0 Number of Sutures: 7 Layer Closure: No Sterile Dressing Applied: Yes Splint Applied: No Sling Applied: No Progress: patient tolerated well Discharge - Discharge Information Problems reviewed: Yes Clinical Impression/Diagnosis: Laceration of skin of right palm Qualifiers: Encounter type: initial encounter Qualified Code(s): S61.411A - Laceration without foreign body of right hand, initial encounter Condition: Stable Disposition: HOME - Admission No - Follow up/Referral Referrals: ON STAFF,NOT [Non Staff, Medical] - - Patient Discharge Instructions Patient Printed Discharge Instructions: DI for Laceration Repair Additional Instructions: You were seen in the ER for a skin laceration. We did an exam, cleaned and repaired the laceration, and made sure your tetanus vaccination was up to date. After our assessment, we do not believe you are having a medical emergency at this time, and we believe you are safe to go home. Please read the information in this packet on how to care for your laceration. Keep the dressing on your wound for 24 hours and keep this dressing clean and dry. After 24 hours, you can take the dressing off and you can shower and get the wound wet, but do not scrub the wound and do not soak it in water. Do not go swimming or take a bath or submerge the wound in standing water. Put a thin layer of antibiotic ointment on the wound once in the morning and once in the evening. Please follow up with your primary care provider to have the sutures removed, or return here to the ER to have them removed. If you have any new or worsening symptoms, especially increasing pain and redness to the area or other signs of infection like fever, please come back to the ER at any time (24 hours a day). If you are having severe or life threatening symptoms, or symptoms that make it unsafe to drive or have someone drive you, please call 911. Come back to have the sutures removed in 6 days. - Post Discharge Activity
== END 2019-12-14 17:15 | disposition home or self-care (01) ==
LOC: FER 16:19
PROC: 3E0234Z Introduction of Serum, Toxoid and Vaccine into Muscle, Percutaneous Approach (ICD-10-PCS; principal; 2019-12-14)
DX: S61.411A Laceration without foreign body of right hand, initial encounter (principal)
CPT/HCPCS: 90715; 99284-25